=== PATIENT | male | born 1970 | race African-American/Black ===

== ENCOUNTER 2016-09-15 06:18 | Inpatient (IN) ==
[2016-09-15] MEDS ORDERED: D50W SYRINGE ONE (06:26)
[2016-09-15] MEDS ORDERED: DIPRIVAN 1% 1,000 MG/100 ML BOTTLE ONE (06:28)
[2016-09-15] MEDS ORDERED: NS 1,000 ML IV ONE (06:33)
[2016-09-15] MEDS ORDERED: ZOSYN 3.375 GM/NS 3.375 GM/50 ML IVPB IV ONE (06:33)
--- NOTE | 2016-09-15 06:44 | PROVIDER DOCUMENTATION ---
HPI-General Adult - General Chief Complaint: Low Blood Sugar Stated Complaint: GENERAL Time Seen by Provider: 09/15/16 06:32 Source: EMS Unable to obtain history due to:: altered - History of Present Illness -Gen Adult Nature of Presenting Problems: EMS called for unreasopnsive. BS was 22 on arrival. They gave 2 amps D50 with no response. Gave Narcan, only vomited. pupils remained constricted. On arrival , was making random writhing motions, eyes deviated to R. Was given vecuronium, intubated Onset/Duration: reports: unsure Timing: reports: still present Modifying Factors: improves with: nothing - Diabetes Related Context Context: reports: low blood sugar Review of Systems - Adult - REVIEW OF SYSTEMS - ADULT ROS:: unobtainable per condition Constitutional: reports: no symptoms reported Neurological: reports: other (unresponsive) Endocrine: reports: see HPI Past History - Adult - PAST MEDICAL HISTORY-ADULT Review of Records: reports: Medications Reviewed Cardiovascular: reports: HTN Genitourinary: reports: ESRD Endocrine/Immune: reports: Diabetes Diabetes Type: Type 1 Diabetes controlled by:: Insulin Dependent Physical Exam-General - PHYSICAL EXAM-ADULT Exam Limited by: pt unresponive to voice, touch. HAking margy writhing motions Initial Vital Signs Reviewed: Yes - CONSTITUTIONAL General Appearance: severe distress - EYES Eyes: pink conjunctivae, other (pupils @ 2 mm, unreactive) - HEAD, EARS, NOSE, MOUTH & THROAT HENMT: moist mucous membranes, normal ENT inspection, pharynx normal - NECK Neck: full range of motion - RESPIRATORY Respiratory: lungs clear, normal breath sounds, no accessory muscle use - CARDIOVASCULAR Cardiovascular: regular rate, rhythm, no edema, no murmur - GASTROINTESTINAL (ABDOMEN) Abdominal Exam: soft - MUSCULOSKELETAL Extremity: other (L BKA, R fist clenched, arms flex and extend) - SKIN Integumentary: normal color, normal turgor, warm/dry - NEUROLOGIC Neurologic: other (unresopnsive to voice, touch, facial grimacing, eyes deviated to R) - PSYCHIATRIC Psych/Mental Status: other (unresponsive) Progress - PLAN OF CARE/RESULTS Progress/Plan/Lab Results: Laboratory Results - last 24 hr 09/15/16 06:23 POC Glucose 78 Orders Category Date Time Status Cardiac Monitoring DIRECTED Care 09/15/16 06:33 Active IV Insertion ORDERED Care 09/15/16 06:33 Active IV Insertion ORDERED Care 09/15/16 06:33 Active Intake and Output-Strict ORDERED Care 09/15/16 06:33 Active Notify MD of + Sepsis Screen NOW Care 09/15/16 06:33 Active Notify MD/PA/HAILEE for exam NOW Care 09/15/16 06:33 Active Repeat Vital Signs .Blood Pressure Care 09/15/16 06:33 Active Repeat Vital Signs .Heart Rate Care 09/15/16 06:33 Active Repeat Vital Signs .Oxygen Saturation Care 09/15/16 06:33 Active Repeat Vital Signs .Respiratory Rate Care 09/15/16 06:33 Active Repeat Vital Signs .Temp Care 09/15/16 06:33 Active CHEST-1 VIEW [RAD] Stat Exams 09/15/16 06:36 Ordered HEAD W/O CONTRAST [CT] Stat Exams 09/15/16 06:36 Ordered ABG [RESP] Routine Lab 09/15/16 06:35 Ordered ALCOHOL BLOOD Stat Lab 09/15/16 06:36 Uncollected BLOOD CULTURE [BLDCUL] Stat Lab 09/15/16 06:33 Uncollected CBC WITH DIFF [HEME] Stat Lab 09/15/16 06:33 Uncollected CK PROFILE [SP CHEM] Stat Lab 09/15/16 06:33 Uncollected COMPREHENSIVE METABOLIC PANEL [CHEM] Stat Lab 09/15/16 06:33 Uncollected LACTATE, PLASMA [CHEM] Stat Lab 09/15/16 06:33 Uncollected LACTATE, PLASMA [CHEM] Timed Lab 09/15/16 06:33 Ordered MAGNESIUM [CHEM] Stat Lab 09/15/16 06:35 Uncollected PROTIME WITH INR [COAG] Stat Lab 09/15/16 06:33 Uncollected PTT [COAG] Stat Lab 09/15/16 06:33 Uncollected TROPONIN T Stat Lab 09/15/16 06:33 Uncollected TYPE & SCREEN [BBK] Stat Lab 09/15/16 06:35 Uncollected URINALYSIS W/POSS RFLX CULT [URINALYSIS] Stat Lab 09/15/16 06:36 Uncollected URINE DRUG SCREEN Stat Lab 09/15/16 06:36 Uncollected 0.9% Sodium Chloride Inj [Ns] 1,000 ml Med 09/15/16 06:33 Discontinued IV As Directed Dextrose 50% Syringe [D50w Syringe] Med 09/15/16 06:26 Discontinued 100 ml .ROUTE .STK-MED ONE Pharmacy Order [Vancomycin IV Per Pharmacy] Med 09/15/16 06:45 Ordered 1 each MISC DIRECTED Piperacil/Tazobact 3.375 gm/Ns [Zosyn 3.375 gm/Ns] 50 Med 09/15/16 06:33 Ordered ml IV NOW Propofol [Diprivan 1%] Med 09/15/16 06:28 Discontinued 1,000 mg in 100 ml .ROUTE As Directed Result Diagrams: 09/15/16 06:45 09/15/16 06:45 - EKG 1 Time of EKG reading by physician:: 07:30 EKG Read and Signed by:: Lionel Barth Rate: 83 Rhythm: ventric paced QRS: normal DC Interval: normal ST Wave: normal - XRAY 1 XRAY Study: Chest Impression: Abnormal XRAY Interpretation: ET tube in good position, no infiltrates - CONSULTS/PCP/HOSPITALIST Notification #1 *Consult/PCP/Hospitalist*: [place]und[place] Time Discussed: 08:15 Consult Disposition: Will see in ED, Admit Procedures - INTUBATION Time of Intubation: 06:30 Intubation Method: orotracheal Equipment: ETT, Bougie Tube Size (cm): 7.5 Pretreated with 100% Oxygen?: Yes Breath Sounds after Intubation: equal ETT Primary Tube Confirmation: Capnometry CO2 Change, Tube placement verified on XRAY Intubation Complications: oral-unsuccessful attempt (cords not visualized, so ET held unil bougie placed) Vent Settings: See Respiratory Therapy Notes Departure - Departure Date of Disposition Decision: 09/15/16 Time of Disposition Decision: 06:35 DIAGNOSIS: Hypoglycemia Altered mental status Qualifiers: Altered mental status type: coma Coma depth: Melanie coma 3-8 Coma timing: in the field (EMT or ambulance) Qualified Code(s): R40.2431 - Melanie coma scale score 3-8, in the field [EMT or ambulance] Chronic renal failure Qualifiers: Chronic kidney disease stage: stage 5 Qualified Code(s): N18.5 - Chronic kidney disease, stage 5 Disposition: ADMITTED INPATIENT 09 Certified Medical Emergency: Emergent Condition: Poor Referrals and Follow-Ups: None,PCP [Primary Care Provider] - - Critical Care Note This patient required my direct & personal management of CC.: Yes Total Time (mins): 35 Critical Care Statement: This patient required my direct personal management to treat or rule out processes, the absence of which, could potentiallly result in sudden, clinically significant life or limb threatening deterioration.
[2016-09-15] MEDS ORDERED: VANCOMYCIN IV PER PHARMACY MISC SCH ×2 (06:45→11:00)
[2016-09-15 07:05] LABS: MANUAL DIFF NEEDED? NO
[2016-09-15 07:16] LABS: BASO% 0.4 % (0.0-0.8); EOS# 0.05 X1000 (0.0-0.7); EOS% 0.9 % (0.0-10.0); HEMATOCRIT 38.5 % (42.0-52.0); HEMOGLOBIN 12.2 g/dL (14.0-18.0); LYMPH# 1.07 X1000 (1.2-3.4); LYMPH% 19.1 % (20.5-51.1); MCH 28.6 PG (27-31); MCHC 31.7 g/dL (33-37); MCV 90.2 FL (81-99); MONO# 0.27 X1000 (0.11-0.59); MONO% 4.8 % (1.7-9.3); MPV 12.3 FL (7.4-10.4); NEUT% 74.8 % (42.2-75.2); PLT 158 X1000 (130-400); RBC 4.27 XMIL (4.7-6.1)
[2016-09-15 07:23] LABS: INR 1.06; PROTIME 11.2 Seconds (9.2-11.7); PTT 27.2 Seconds (22.0-36.0)
--- NOTE | 2016-09-15 07:29 | Diag Imaging Result Doc PS360 ---
EXAM: HEAD W/O CONTRAST INDICATION: ALOC COMPARISON: None. FINDINGS: There is mild patchy low attenuation in the periventricular and subcortical white matter suggesting mild microangiopathy. There is no definite acute infarct given the limited sensitivity of CT versus MRI. There is no discrete intracranial mass, mass effect, or intracranial hemorrhage. There is minimal maxillary and sphenoid sinus mucosal disease. There are bilateral large mastoid air cell effusions. Surrounding soft tissues and bony structures are grossly unremarkable, otherwise. IMPRESSION: 1.Mild chronic changes but no evidence of acute intracranial pathology. 2.Bilateral large mastoid air cell effusions and minimal sinus mucosal disease. Electronically signed by Todd Damon 09/15/2016 7:26 AM
[2016-09-15] MEDS ORDERED: NORCURON IV ONE (07:30)
[2016-09-15] MEDS ORDERED: D50W SYRINGE IV ONE ×2 (07:30→15:49)
[2016-09-15 07:37] LABS: ALLEN TEST NO; BE 12.2 mmoll (-3.0-3.0); BLOOD TYPE ARTERIAL; DRAW SITE R FEMORAL; O2(CT) 17.6 mL/dL (15.0-23.0); PO2(98.6) 228 mmHg (60-100); SAMPLE BLOOD; SAO2 95.6 % (95.0-100.0); SRATE 14 BPM; THB 12.7 g/dL (11.5-17.4); TVOL 500 mL; pH(98.6) 7.47 (7.35-7.45)
[2016-09-15 07:38] LABS: MODALITY VENTILATOR
[2016-09-15 07:39] LABS: PCO2(98.6) 52 mmHg (35-45)
[2016-09-15 07:50] LABS: ALBUMIN 4.2 g/dL (3.5-5.0); CALCIUM 9.3 mg/dL (8.8-10.2); POTASSIUM 5.4 mmol/L (3.5-5.1); TOTAL BILIRUBIN 0.37 mg/dL (0.20-1.00); TOTAL PROTEIN 7.7 g/dL (6.3-8.3)
[2016-09-15] MEDS: DIPRIVAN 1% 1,000 MG/100 ML BOTTLE IV SCH ×5 (08:20→22:13)
[2016-09-15 08:55] LABS: URINE CULTURE NEEDED? NO; URINE MICRO REVIEW NEEDED? NO; URINE SOURCE CATH
[2016-09-15 09:07] LABS: BILIRUBIN URINE NEGATIVE (NEGATIVE); BLOOD URINE TRACE (NEGATIVE); COLOR YELLOW; GLUCOSE URINE 300 mg/dL (NEGATIVE); LEUKOCYTES URINE NEGATIVE (NEGATIVE); NITRITE URINE NEGATIVE (NEGATIVE); PH URINE 8.5; PROTEIN URINE 600 mg/dL (NEGATIVE); SP GRAVITY URINE 1.012; TURBIDITY URINE CLEAR (CLEAR); UROBILINOGEN URINE NORMAL (NORMAL)
[2016-09-15 09:09] LABS: UR EPITHELIAL CELLS <10 /HPF (<10); URINE BACTERIA NEGATIVE /HPF; URINE RBC <10 /HPF (<10); URINE WBC <10 /HPF (<10)
[2016-09-15 09:15] LABS: UR AMPHETAMINES QUAL NONE DETECTED (NONE DETECT); UR BARBITUATES QUAL NONE DETECTED (NONE DETECT); UR BENZODIAZEPIN QUAL NONE DETECTED (NONE DETECT); UR CANNABINOIDS QUAL NONE DETECTED (NONE DETECT); UR COCAINE QUAL NONE DETECTED (NONE DETECT); UR METHADONE QUAL NONE DETECTED (NONE DETECT); UR OPIATES QUAL NONE DETECTED (NONE DETECT); UR OXYCODONE QUAL NONE DETECTED (NONE DETECT); UR PCP QUAL NONE DETECTED (NONE DETECT)
[2016-09-15] MEDS ORDERED: NS 1,000 ML IV SCH (09:36)
[2016-09-15] MEDS: PROTONIX IV SCH (10:28)
[2016-09-15] MEDS: SODIUM CHLORIDE 0.9% INJ SCH (10:28)
[2016-09-15] MEDS: HEPARIN SUBQ SCH ×2 (10:28→22:13)
[2016-09-15] MEDS ORDERED: D5 1/2 NS 1,000 ML IV SCH (10:58)
[2016-09-15] MEDS ORDERED: ZOSYN 2.25 GM/NS 2.25 GM/50 ML IVPB IV SCH (11:00)
[2016-09-15] MEDS ORDERED: LEVOPHED 8 MG in D5 1/2 NS 250 ML IV SCH (11:00)
[2016-09-15] MEDS ORDERED: HUMALOG SUBQ SCH (11:00)
[2016-09-15] MEDS ORDERED: VANCOMYCIN 1 GM/NS 1 GM/250 ML IVPB IV ONE (11:01)
[2016-09-15] MEDS: NEO-SYNEPHRINE 50 MG in NS 250 ML IV SCH (11:04)
[2016-09-15] MEDS: DUONEB (A & A) INH SCH ×4 (11:33→23:29)
--- NOTE | 2016-09-15 12:20 | Diag Imaging Result Doc PS360 ---
EXAM: CHEST-1 VIEW INDICATION: intubated TECHNIQUE: One view COMPARISON: None. FINDINGS: The newly placed ET tube projects over the trachea and above the castillo at about the T4 level. There is an NG tube in place that projects below the diaphragm and out of the [id number], assumed to be in the stomach. The lungs are grossly clear. There is no discrete pleural fluid collection or pneumothorax. The cardiac silhouette is unremarkable. The central vasculature may be slightly prominent. This could be due to vascular crowding from poor inspiration. IMPRESSION: Recent placement of ET tube and NG tube as described and slight prominence of the central vasculature. Electronically signed by Todd Damon 09/15/2016 12:17 PM
--- NOTE | 2016-09-15 12:44 | ECHO REPORT ---
ORDER DATE: 09/15/2016 ECHOCARDIOGRAM: MEASUREMENTS: Left ventricular end-diastolic diameter 3.4, end systolic diameter 2.3, septal thickness 2.3, posterior wall thickness 1.6, left atrium 3.8, aortic root 3.3. SUMMARY: 1. Adequate quality study. 2. Trileaflet aortic valve demonstrates mild sclerosis but opens normally on 2-dimensional images. Peak gradient across aortic valve is less than 10 mmHg. Mild to moderate mitral annular calcification is demonstrated with trace mitral regurgitation. Tricuspid valve is without structural abnormality with trace tricuspid regurgitation. Pulmonic valve without structural abnormality with mild pulmonic insufficiency. Estimated systolic PA pressure by Doppler is 25-30 mmHg. The aortic root is normal in size. 3. Normal left ventricular chamber size with severe concentric left hypertrophy is demonstrated. Estimated left ventricular ejection fraction appears to be at least 60%. No regional wall motion dysfunction is evident. Doppler suggests grade 1 left ventricular diastolic dysfunction. Left atrium, right atrium, and right ventricle are normal size with normal right ventricular systolic function. 4. No pericardial effusion. 5. Inferior vena cava is dilated but is a nonspecific finding, patient on ventilator at time of study. 6. Sinus rhythm during study. CONCLUSIONS: 1. Very mild aortic valve sclerosis without stenosis. 2. Mild to moderate mitral annular calcification with trace mitral regurgitation. 3. Severe concentric left hypertrophy with estimated left ventricular ejection fraction at least 60%. 4. Grade 1 left ventricular diastolic dysfunction suggested. cc: MD Issac Nazario CRNP
--- NOTE | 2016-09-15 13:21 | HISTORY AND PHYSICAL ---
CHIEF COMPLAINT: Altered mental status and respiratory failure. HISTORY OF PRESENT ILLNESS: Mr. Vasquez is a 46-year-old male with a history that is largely unknown, he has end-stage renal disease, on hemodialysis, who was found obtunded by his family this morning. Currently patient is intubated and sedated in the ICU thus history is unable to be obtained from the patient, we did speak with his mother who does not have a very good understanding of his medical history. Apparently yesterday he was in his normal state of health and before going to bed checked his blood sugar, it was found to be 74, he was given orange juice and peanut butter and went to bed. This morning at around 5 o'clock he was found obtunded with white foamy substance in his mouth and ambulance was called. Per report his blood sugar was 22 in the ambulance and he was brought to the ER here where he was promptly intubated for airway protection and hypoxemia with a pulse ox of 75%. A head CT was done in the ER, it did not show anything acute, his labs revealed a creatinine of 10.4 and a troponin of 0.316, with a normal CK otherwise. His labs are fairly unremarkable. His chest x-ray did not show anything acute and EKG is within normal limits. He is now going to be admitted to the ICU for critical care management. PAST MEDICAL HISTORY: 1. ESRD on hemodialysis. 2. History of CVA. 3. Gangrenous right pointer finger. 4. Hypertension. 5. Hyperlipidemia. 6. CAD. 7. Vasculopathy. SURGICAL HISTORY: He has had a left lower extremity amputation, [id number] , and bilateral AV fistulas. SOCIAL HISTORY: No history of tobacco or alcohol use. He is reported to have smoked marijuana occasionally for appetite stimulation. He is . His is not here now but he has strong family support. REVIEW OF SYSTEMS: Unable to be obtained. FAMILY HISTORY: Noncontributory. ALLERGIES: No known drug allergies. HOME MEDICATIONS: Norvasc 10 mg daily, Lipitor 10 mg p.o. at bedtime, carvedilol 12.5 mg daily, [place] 5 as needed for pain, Levemir 6 units b.i.d., lisinopril 40 mg p.o. daily. PHYSICAL EXAMINATION: VITAL SIGNS: Blood pressure. 141/106, heart rate is 80, respiratory rate 18, O2 saturation 97% on 50% mechanical ventilation. GENERAL: This is a chronically ill-appearing 46-year-old male , lying in hospital bed intubated and sedated. NEUROLOGIC: The patient is intubated on propofol drip. HEENT: Head is atraumatic and normocephalic. His pupils are equal, round, reactive to light. His oral mucosa is moist. Trachea is midline. Poor dentition. NECK: Supple. Trachea is midline. CHEST: Clear to auscultation bilaterally. Diminished at the bases. CV: Regular rate and rhythm. S1, S2 is noted. GI: Soft, nondistended. Bowel sounds are hypoactive. EXTREMITIES: Left lower extremity amputation noted. Right lower extremity without edema, cool to touch, he does have ulceration of the skin in the midportion of his right constantino, it does not appear to be infected. He has a right finger ulceration with necrotic tip currently wrapped in gauze, clean, dry and intact. DIAGNOSTIC DATA: WBC 5.59, hemoglobin 12.4, hematocrit 38.5, platelet count is 158,000, INR 1.06. ABG on 100% mechanical ventilation; pH 7.47, CO2 52, O2 228, bicarb 34.4, sodium 144, potassium 5.4, chloride 89, CO2 31, anion gap 24, BUN 60, creatinine 10.4, glucose 202, magnesium is 3, calcium 9.3, bilirubin 0.37, AST 22, ALT 23, alkaline phosphatase 95. Troponin 0.316, CK 161. Lactate 2. TSH 3.3. UA does not show anything acute. Toxicology is negative. Head CT shows chronic changes, nothing acute. Chest x-ray does not show any acute abnormalities. ASSESSMENT AND PLAN: 1. Acute hypoxemic respiratory failure: Etiology is unclear at this time but it would seem that prolonged hypoglycemia is the underlying cause. He has been intubated and is sedated on propofol in the ICU. We have consulted Pulmonary Critical Care. Will continue with aggressive pulmonary toilet, DuoNebs, and broad-spectrum antibiotics. We have ordered daily chest x-ray, ABGs, labs, and deep venous thrombosis and gastrointestinal prophylaxis. 2. Possible aspiration pneumonia/pneumonitis. Will start the patient on broad spectrum antibiotics. 3. Profound hypoglycemia: We are going to switch the patient over to a D5 1/2 NS drip and check blood sugars every hour. 4. Elevated troponin: We are going to continue to trend those and order an echocardiogram and see if we can find records as the patient was at [facility] last month. 5. End-stage renal disease: Dr. Dupree has been consulted for dialysis management as well as assistance with medical care. His hemoglobin and hematocrit, acid base balance and fluid volume status are all stable at this time. 6. Diabetes mellitus. We are going to check a hemoglobin A1c and put him on D10. We will give him sliding scale insulin for any hyperglycemia. 7. Anemia: Likely chronic disease related. We will check iron studies and treat accordingly. 8. Right index finger necrosis. Will consult general surgery for further recommendations. 9. Hyperkalemia. Will trend the potassium and treat accordingly. Further management as per the station cleaning porter. 10. Deep venous thrombosis and gastrointestinal prophylaxis provided with heparin and Protonix respectively. CRITICAL CARE TIME WITH THE PATIENT: Greater than 45 minutes. Dictated by HAILEE Jose for Carol Morales MD cc: HAILEE Jose MD The patient was seen and examined by me. I agree with the assessment and plan as dictated. [facility] CENTERYol[facility]
--- NOTE | 2016-09-15 14:23 | OPERATIVE NOTE ---
PROCEDURE DATE: 09/15/2016 PROCEDURE: Left femoral TLC. INDICATIONS: Emergency access and respiratory failure. PROCEDURE: Patient's left groin was shaved, prepped with ChloraPrep, and anesthetized with lidocaine. Then the 14 gauge introducer needle was used to puncture the left femoral vein. A guide ajit was inserted over which a dilator was passed and 20 cm triple lumen catheter was inserted 20 cm and sutured in position with two 2-0 silk sutures. Good blood flow all ports.
--- NOTE | 2016-09-15 14:35 | CONSULTATION ---
DATE OF CONSULTATION: 09/15/2016 REQUESTING PHYSICIAN: Dr. Carol Morales. Thank you very much for asking me to see this very unfortunate, 46-year-old male, . I am pleased to assist in his care. DIAGNOSES: 1. Acute mental status change associated with hypoglycemia, likely to be a hypoglycemic encephalopathy, rule out sepsis or cerebrovascular accident. 2. Respiratory failure as a consequence to above. 3. Chronic renal insufficiency. 4. Extreme peripheral vascular disease. RECOMMENDATIONS: He is placed on mechanical ventilation. I will adjust this. I will place a left femoral TLC for emergency access and resuscitation, realizing this will have to be changed in a couple of days, but will try to buy some time for volume resuscitation and glucose resuscitation to see if there is any mental status return. Will oxygenate and try to see if his mental status will improve. We will follow closely along with you. HISTORY: This very unfortunate, 46-year-old male, , is a chronic renal dialysis patient who subsequently presents to our facility after being found obtunded in bed. He was intubated by the ambulance, placed on mechanical ventilation, and found to have a blood glucose of 23. I am consulted to assist in his care. He has no ability to give any further history. PAST MEDICAL HISTORY: Positive for chronic renal disease, on hemodialysis, as well as hypertension, as well as peripheral vascular disease. SOCIAL HISTORY: He has a supportive family. He is not a current smoker or drinker. FAMILY HISTORY: Noncontributory. REVIEW OF SYSTEMS: Cannot be obtained secondary to above. The ABG shows a 7.46 pH with an 88 CO2 and 18 respirations, temp 97.5 degrees.HEENT: Reveals pupils that are equal and reactive. Extraocular muscles are intact. Chest: Reveals bilateral mechanically generated breath sounds with no wheezes. Cardiac Exam: Reveals a regular rhythm. Abdomen: Soft, nontender. Extremities: Reveal a left olxfz-[id number]-lyuh amputation. There is no edema. There is vascular grafts on both upper extremities. Neurological: He makes no purposeful movement but does move his hands. LABORATORY: His sodium is 144, potassium 5.4, chloride 89, CO2 31, BUN 60, creatinine 10.4, glucose 91 now, initially 23. ABG shows a 7.47 pH with a 53 CO2 and 228 O2 on 100%, rate of 14 PRVC and 5 of PEEP. The white count is 5,500, hemoglobin 12.2, hematocrit 38.5, and platelets 158,000.
[2016-09-15 15:43] LABS: ALBUMIN 3.8 g/dL (3.5-5.0); CALCIUM 8.6 mg/dL (8.8-10.2)
[2016-09-15 15:46] LABS: POTASSIUM 6.1 mmol/L (3.5-5.1)
[2016-09-15] MEDS ORDERED: SODIUM BICARBONATE 8.4% IV PUSH ONE (15:49)
[2016-09-15] MEDS ORDERED: ALBUTEROL 0.5% INH CONC FOR HYPERKALEMIA INH ONE (15:50)
[2016-09-15] MEDS ORDERED: VELTASSA PO ONE (15:53)
[2016-09-15] MEDS: ZOSYN 2.25 GM/NS 2.25 GM/50 ML IVPB IV SCH (16:16)
[2016-09-15] MEDS ORDERED: ALBUTEROL NEB INH ONE (20:00)
--- NOTE | 2016-09-15 21:46 | CONSULTATION ---
DATE OF CONSULTATION: 09/15/2016 REASON FOR CONSULTATION: Assistance with management and end-stage kidney disease. HISTORY OF PRESENT ILLNESS: Mr. Vasquez is a 46-year-old black man with a history of end-stage kidney disease secondary to diabetes. He also has hypertension, cerebrovascular disease, coronary disease, peripheral vascular disease. He dialyzes Friday, Friday, Friday in [place]. He was brought to the emergency room because he was found obtunded at home and was profoundly hypoglycemic. Blood sugar was 22. He was brought to the emergency room and was promptly intubated for airway protection and hypoxemia. CT of the head showed no acute changes and he had no other acute findings. He did develop hypotension after beginning Diprivan. He did attend his routine dialysis on last Friday. The family is not present in the room or in the waiting room to provide any further history so the history is obtained entirely from the chart. PAST MEDICAL HISTORY: As above. HOME MEDICATIONS: Include lisinopril, amlodipine, hydrocodone, atorvastatin, insulin, carvedilol. ALLERGIES: None. SOCIAL HISTORY: No alcohol or tobacco. Does use occasional marijuana. He is . FAMILY HISTORY: Noncontributory. REVIEW OF SYSTEMS: Otherwise noncontributory. PHYSICAL EXAM: General: Middle-aged man, sedated on the ventilator. No distress. Skin: Warm and dry. HEENT: Conjunctivae are pink. Pupils are equal. Oropharynx is clear and moist. Neck: Supple. Trachea is midline. Neck veins are not visible. Heart: Regular with a gallop. No rubs. Lungs: Have equal breath sounds. No crackles or wheezes. No accessory muscle use or retractions. Abdomen: Soft, nontender. Bowel sounds are present. No organomegaly, masses or bruits. Extremities: Have no edema, clubbing, or cyanosis. Neurologic Exam: Impaired by Diprivan but nonfocal. LABORATORY DATA: Sodium 143, potassium 6.1, chloride 91, bicarbonate 28, BUN 59, creatinine 10.5. Hemoglobin 12.2. IMPRESSION: 1. End-stage kidney disease. He has no acute indications for dialysis today. We will plan his 1st treatment tomorrow. 2. Electrolytes: Modest hyperkalemia is present. This has been treated medically and will remeasure at 8 p.m. 3. Acid base. Anion gap is 24. Lactate was 1.3 on is blood gas. We will check acetone. Most likely related to his renal disease only. 4. Anemia is in target. 5. Hypotension. Improving and his Clay-Synephrine is being weaned off. cc: Mukesh Dupree MD
[2016-09-16] MEDS: DIPRIVAN 1% 1,000 MG/100 ML BOTTLE IV SCH ×7 (01:05→23:19)
[2016-09-16] MEDS: ZOSYN 2.25 GM/NS 2.25 GM/50 ML IVPB IV SCH ×4 (01:05→23:19)
[2016-09-16] MEDS: DUONEB (A & A) INH SCH ×2 (03:32→07:43)
[2016-09-16] MEDS ORDERED: NORCURON ONE (04:21)
[2016-09-16 04:51] LABS: ALLEN TEST YES; BE 0.7 mmoll (-3.0-3.0); BLOOD TYPE ARTERIAL; DRAW SITE R RADIAL; METHB 0.2 % (0.0-1.5); O2(CT) 24.9 mL/dL (15.0-23.0); PCO2(98.6) 40 mmHg (35-45); PO2(98.6) 168 mmHg (60-100); SAMPLE BLOOD; SAO2 95.9 % (95.0-100.0); SRATE 18 BPM; THB 18.3 g/dL (11.5-17.4); TVOL 500 mL; pH(98.6) 7.41 (7.35-7.45)
[2016-09-16 04:53] LABS: MODALITY VENTILATOR
[2016-09-16 05:16] LABS: HEMOGLOBIN A1C 6.8 % (4.8-6.0)
--- NOTE | 2016-09-16 05:29 | EKG Report ---
Test Performed on : 09/15/2016 1:34:43 PM Test Reason : tachycardia Blood Pressure : / mmHG Vent. Rate : 096 BPM Atrial Rate : 096 BPM P-R Int : 138 ms QRS Dur : 084 ms QT Int : 368 ms P-R-T Axes : 079 054 250 degrees QTc Int : 464 ms Normal sinus rhythm. Left ventricular hypertrophy with repolarization abnormality Abnormal ECG When compared with ECG of 15-SEP-2016 07:27, (Unconfirmed) Sinus rhythm. has replaced Electronic ventricular pacemaker Confirmed by Thomas ANGELO, Alok Massey ([id number]) on 09/16/2016 7:57:47 AM
[2016-09-16] MEDS ORDERED: NS 1,000 ML IV ONE (05:57)
[2016-09-16 06:10] LABS: FERRITIN 943 ng/mL (30-400)
--- NOTE | 2016-09-16 06:57 | EKG Report ---
Test Performed on : 09/15/2016 07:27:56 AM Test Reason : NO ORDER IN [place] Blood Pressure : / mmHG Vent. Rate : 083 BPM Atrial Rate : 083 BPM P-R Int : 152 ms QRS Dur : 100 ms QT Int : 414 ms P-R-T Axes : 079 044 266 degrees QTc Int : 486 ms Atrial-sensed ventricular-paced rhythm Abnormal ECG No previous ECGs available Unconfirmed Result
--- NOTE | 2016-09-16 07:14 | Diag Imaging Result Doc PS360 ---
CHEST-PORTABLE - 09/16/2016 INDICATION: dyspnea TECHNIQUE: COMPARISON: 09/15/2016 FINDINGS: Support tubes are stable. There is worsening infiltrate in the left lung base. Heart size remains normal. No pneumothorax or significant effusion. IMPRESSION: Worsening left basilar infiltrate. Electronically signed by Addy Glass 09/16/2016 7:12 AM
[2016-09-16] MEDS ORDERED: TIGHT: 0.2 ML/HR MISC PRN ×2 (07:18→08:08)
[2016-09-16] MEDS ORDERED: NS 2,000 ML MISC PRN ×2 (07:18→08:08)
[2016-09-16] MEDS ORDERED: HEPARIN IV PRN ×2 (07:18→08:08)
[2016-09-16] MEDS: NEO-SYNEPHRINE 50 MG in NS 250 ML IV SCH ×2 (07:29→16:52)
[2016-09-16 08:12] LABS: HEMATOCRIT 32.6 % (42.0-52.0); HEMOGLOBIN 10.3 g/dL (14.0-18.0); MCHC 31.6 g/dL (33-37); MCV 91.8 FL (81-99); MPV 12.9 FL (7.4-10.4); RBC 3.55 XMIL (4.7-6.1)
[2016-09-16 09:08] LABS: ALBUMIN 3.5 g/dL (3.5-5.0); CALCIUM 8.3 mg/dL (8.8-10.2)
[2016-09-16 09:09] LABS: POTASSIUM 6.2 mmol/L (3.5-5.1)
[2016-09-16] MEDS: HEPARIN SUBQ SCH ×2 (09:47→21:04)
[2016-09-16] MEDS: SODIUM CHLORIDE 0.9% INJ SCH (09:47)
[2016-09-16] MEDS: PROTONIX IV SCH (09:47)
--- NOTE | 2016-09-16 10:15 | PROGRESS NOTE ---
DATE: 09/16/2016 SUBJECTIVE: Patient currently sedated, mechanically ventilated. OBJECTIVE: Vital Signs: Temperature 98.6 degrees, pulse 94, respiratory rate 18, blood pressure 86/57. Intake 2.4 L. Output 395 mL and 280 mL of this was NG-tube drainage. General: This is a middle-aged gentleman currently sedated. He is intubated and mechanically ventilated. HEENT: Normocephalic and atraumatic. He is orally intubated. Neck: Supple. Trachea midline. Unable to discern JVD. Cardiovascular: He is tachycardic, has a gallop. Pulmonary: He has equal excursion. He has wheezes bilaterally. Abdomen: Soft, with positive bowel sounds. : Not inspected. He has a Pitts catheter. Extremities: He has a left lower extremity BKA. Right lower extremity with some wounds noted to the pretibial area and a dressing noted to the right knee. There is no edema noted. Integumentary: Skin is warm and dry otherwise. Lab Data: WBC of 10.9, hemoglobin 10.3, hematocrit 32.6, and platelet count of 153,000. Sodium 138, potassium 6.2, CO2 25, BUN 66, creatinine 11.4, calcium 8.3, phosphorus 9.6. ASSESSMENT AND PLAN: 1. End-stage renal disease management. Today is his routine dialysis day. We will dialyze him on a 2 K bath/UF to dry weight or as tolerated by his blood pressure for a routine 4 hour treatment. We will cannulate his left arm fistula today. We will attempt to reach family to determine who his primary architectural project manager is. 2. Electrolytes. Continues with hyperkalemia. We will correct with dialysis today. 3. Acid base balance. We will dialyze on a routine dialysis bath. 4. Hypotension, marginal. Continues to require Clay-Synephrine. Seen, data reviewed, discussed with Steven Palomo on 09/16/16. I agree with the above assessment and plan of care. rg Dictated by HAILEE Storey for Mukesh Dupree MD cc: Mukesh Dupree MD [facility]
[2016-09-16] MEDS ORDERED: HEPARIN ONE (10:33)
[2016-09-16] MEDS ORDERED: NS 2,000 ML ONE (10:33)
[2016-09-16] MEDS: HUMULIN R SUBQ SCH ×3 (11:20→21:05)
--- NOTE | 2016-09-16 13:55 | PROGRESS NOTE ---
DATE: 09/16/2016 SUBJECTIVE: The patient remains intubated and sedated on the ventilator. No acute events noted overnight. OBJECTIVE: Vital Signs: Temperature 98.3 degrees, blood pressure 90/66, heart rate 105, respirations 18, O2 saturations 100% on the mechanical ventilator. General: This is a chronically ill-appearing, elderly male, lying in bed, sedated and intubated. Head: Normocephalic, atraumatic. Heart: S1, S2. Normal. Tachycardic. Lungs: Coarse breath sounds bilaterally. No crackles. No wheezing. Abdomen: Positive bowel sounds. Soft , nontender, nondistended. Extremities: The patient has fistulas in both upper extremities. The patient does have a left phwky-rnv-txan amputation stump. The right index finger has dry gangrene. Neurologic: The patient is currently sedated on the ventilator. LABORATORY: White blood cell count 10, hemoglobin 10, hematocrit 32, platelets 153,000. Sodium 138, potassium 6.2, chloride 85, CO2 25, BUN 66, creatinine 11.4, glucose 269, folate 5.6, phosphorus 9.6. ASSESSMENT AND PLAN: 1. Acute respiratory failure. Continue with IV antibiotic therapy, bronchodilator and ventilator management as per the barrel marker. 2. Suspected aspiration pneumonia. Continue on the current antibiotic regimen. 3. Hypoglycemia. Improved. We will start the patient on sliding scale insulin and monitor the blood sugars closely. 4. Hyperkalemia. This will be addressed during dialysis today. 5. End-stage renal disease. Management as per the internet sales consultant. 6. 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 Continue with wound care. General Surgery is following. 7. Peripheral vascular disease. Aware. 8. Folate deficiency. We will start the patient on folic acid replacement. 9. Anemia of chronic disease. We will monitor the patient's hemoglobin and hematocrit closely. 10. Diabetes mellitus type 2. The patient has been started on sliding scale insulin. 11. Deep vein thrombosis prophylaxis. Continue on heparin 5000 units subcutaneous every 12 hours. cc: Carol Morales MD MTDD
--- NOTE | 2016-09-16 14:45 | CONSULTATION ---
DATE OF CONSULTATION: 09/16/2016 REQUESTING PHYSICIAN: Carol Morales MD. REASON FOR CONSULTATION: Consult concerning right index finger dry gangrene. HISTORY OF PRESENT ILLNESS: A 46-year-old male who was found initially to be altered mental status, respiratory failure that was intubated yesterday, was noted to have dry gangrene of his right index finger. Unable to give further information as to the duration of these symptoms or the ischemia, but he had a wound noted there on admission. He has had 2 AV fistulous placed, one on either extremity. Both seem to have flow noted to them. Unsure of the details of why he has two upper extremity fistulas. There is no family at the bedside to give further information. We do not have the medical records from the outlying facility where he had these placed. The patient was intubated emergently and placed on sedation and I was asked to evaluated him for an opinion. Again, there are no family members available to give further information. I have reviewed all his medical from the other H and Ps that have been dictated. PAST MEDICAL HISTORY: 1. End-stage renal disease requiring hemodialysis. 2. History of stroke. 3. History of gangrene of the right index finger. 4. Hypertension. 5. Hyperlipidemia. 6. Coronary artery disease. 7. Peripheral vascular disease. PAST SURGICAL HISTORY: 1. Previous right digit amputation. 2. Oihwq-dxn-ptvh amputation. 3. Bilateral AV fistulas. SOCIAL: Unknown. Reviewed from other charts. FAMILY HISTORY: Unknown. ALLERGIES: None reported. HOME MEDICATIONS: Reviewed. REVIEW OF SYSTEMS: Unable to obtain. PHYSICAL EXAMINATION: Vital Signs: Patient is currently intubated and sedated. He is currently afebrile. His heart rate is in the low 100s. His blood pressure is 90/66, on 50% FiO2, with saturation in the 100s. General: Sedated on the ventilator. No acute distress. HEENT: Normocephalic, atraumatic. Pupils equal, round, react to light. Mucous membranes moist. Oropharynx benign. Neck: Supple. Trachea midline. Cardiovascular: Regular rate and rhythm. Lungs: Grossly clear, but referred airway noises. Abdomen: Soft, nondistended. Extremities: Dry gangrene noted to the right distal index finger. I do appreciate a triphasic radial pulse and signal. There is a monophasic ulnar signal. I cannot find a palmar arch. He has 2 fistulas, 1 on either extremity that seem to have flow in them. Vascular: Please see above. Skin: Please see above. LABORATORY: White blood cell count 10, hematocrit 32, platelet count 153,000. Remainder of labs reviewed. ASSESSMENT/PLAN: A 46-year-old male with dry gangrene of his right upper extremity with multiple medical problems. 1. Multiple medical problems. At this time, patient is being managed by the hospitalist service. We will keep a close eye on him. We would like to have his medical issues resolved before any kind of surgical intervention. 2. 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 At this time, patient likely would benefit from amputation. 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 Regardless, this needs to be amputated, but I suspect he needs to be cleared up medically before we can do this. I will continue to follow with you. cc: Solitario Tang MD
[2016-09-16] MEDS: FOLIC ACID 1 MG in NS 50 ML IV SCH (16:15)
[2016-09-16] MEDS: VANCOMYCIN 1 GM/NS 1 GM/250 ML IVPB IV SCH (17:27)
[2016-09-17] MEDS: NEO-SYNEPHRINE 50 MG in NS 250 ML IV SCH (03:24)
[2016-09-17 04:49] LABS: HEMATOCRIT 31.3 % (42.0-52.0); HEMOGLOBIN 9.7 g/dL (14.0-18.0); MCV 93.7 FL (81-99); MPV 11.8 FL (7.4-10.4); RBC 3.34 XMIL (4.7-6.1)
[2016-09-17 04:54] LABS: ALLEN TEST YES; BLOOD TYPE ARTERIAL; DRAW SITE L BRACHIAL; PCO2(98.6) 43 mmHg (35-45); PO2(98.6) 113 mmHg (60-100); SAMPLE BLOOD; SRATE 14 BPM; THB < 3.0 g/dL (11.5-17.4); TVOL 500 mL; pH(98.6) 7.38 (7.35-7.45)
[2016-09-17 04:55] LABS: MODALITY VENTILATOR
[2016-09-17 05:36] LABS: ALBUMIN 3.4 g/dL (3.5-5.0); CALCIUM 8.1 mg/dL (8.8-10.2); POTASSIUM 5.5 mmol/L (3.5-5.1)
[2016-09-17] MEDS: HUMULIN R SUBQ SCH ×4 (07:11→20:56)
--- NOTE | 2016-09-17 07:17 | Diag Imaging Result Doc PS360 ---
EXAM: CHEST-PORTABLE INDICATION: dyspnea TECHNIQUE: One view COMPARISON: 09/16/2016 FINDINGS: ET tube and NG tube are in stable positions. The patient is rotated toward the right slightly. Infiltrate in the left lower lung zone appears to have improved slightly during the interval. There are no new consolidations. Cardiac silhouette is stable. IMPRESSION: Slight interval improvement. Electronically signed by Todd Damon 09/17/2016 7:14 AM
[2016-09-17] MEDS: DUONEB (A & A) INH PRN ×3 (07:36→15:16)
[2016-09-17] MEDS: ZOSYN 2.25 GM/NS 2.25 GM/50 ML IVPB IV SCH ×2 (07:53→15:49)
[2016-09-17] MEDS: DIPRIVAN 1% 1,000 MG/100 ML BOTTLE IV SCH ×3 (08:12→18:21)
--- NOTE | 2016-09-17 08:30 | PROGRESS NOTE ---
DATE: 09/17/2016 SUBJECTIVE: No major changes. The patient is still on a ventilator. Still remains on Clay- Synephrine. OBJECTIVE: Vital Signs: Patient is currently afebrile. Most recent pulse 72, blood pressure 165/60. He is on Clay-Synephrine. General exam: Sedated on the ventilator. HEENT: Normocephalic, atraumatic. Pupils equal, round, react to light. Mucous membranes moist. Oropharynx benign. Neck: Supple. Trachea midline. Cardiovascular: Regular rate and rhythm. Lungs: Referred airway noises. Abdomen: Soft, nontender, nondistended. Extremities: Stable necrosis noted to the distal aspect of the right distal index finger. Vascular exam: Essentially unchanged. LABS: White blood cell count is 11, hematocrit 31. Remainder of labs reviewed. ASSESSMENT/PLAN: A 46-year-old, male with dry gangrene of his right upper extremity. 1. Multiple medical problems, at this time being managed by the hospitalist service. We will need to have these resolved before we can deal with them surgically. 2. 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 At this time, appears to be stable. He will likely need an amputation. Will continue to follow with you with local wound care. cc: Solitario Tang MD
[2016-09-17] MEDS: SODIUM CHLORIDE 0.9% INJ SCH (09:36)
[2016-09-17] MEDS: PROTONIX IV SCH (09:36)
[2016-09-17] MEDS: HEPARIN SUBQ SCH ×2 (09:36→21:06)
--- NOTE | 2016-09-17 10:14 | PROGRESS NOTE ---
DATE: 09/17/2016 SUBJECTIVE: This is a 46-year-old, who was admitted on 09/15/2016 history largely unknown. He had end-stage renal disease on hemodialysis. He was found obtunded by his family, apparently lives with mother. The patient came in and his sugar was apparently in the 20s. He was intubated and sedated and sent to the ICU. Concerned about infection and sepsis with an elevation of lactate acid level. PAST MEDICAL HISTORY/SUMMARY: 1. End-stage renal disease on hemodialysis. 2. History of CVA. 3. Gangrenous right pointer finger. 4. Hypertension. 5. Hyperlipidemia. 6. Coronary artery disease. 7. Vasculopathy. SURGICAL HISTORY: Left lower extremity amputation, zenhz-xvj-xcdl amputation and bilateral AV fistulas. Patient sedated on the ventilator. Chest x-ray from this morning with slight interval improvement. ET tube and NG tube are in stable position. Patient is rotated to the right slightly. Infiltrate in the left lower lung appears to be improved. OBJECTIVE: Vital Signs: Temp 98.3 degrees, pulse 72, respirations 14, blood pressure 157/85. HEENT: The pupils are equal, round. CVP less than 6 cm. Lungs: Clear in all lung mar[place]illa. Cardiovascular: Regular rhythm and rate without murmur or S3. Abdomen: Soft. Skin: Warm and dry. : Urine output over 2 L. LABS: White count 11,020, hematocrit 31, platelet count 134,000. Sodium 140, potassium 5.0, chloride 97, BUN 35, creatinine 7.4 which has come down from 11.4, blood sugars 217, 112, 76 and 94. ASSESSMENT AND PLAN: 1. Acute respiratory failure. Continue intravenous antibiotic therapy and bronchodilator ventilator management. 2. Suspect aspiration pneumonia. Continue present antibiotics. 3. Hypoglycemia, which is improved. Continue sliding scale. Pattern sugars. 4. Hyperkalemia, which is addressed with dialysis yesterday. 5. End-stage renal disease. 6. Dry gangrene to the right index finger. Dr. Tang is following. No surgery planned at this time. 7. Peripheral vascular disease, aware. 8. Folate deficiency. Start the patient on folic acid replacement. 9. Anemia of chronic disease. Monitor patient's hemoglobin and hematocrit closely. 10. Diabetes mellitus type 2. Continue to follow sugars. Review of orders: I am not sure I see anything to change at this point. He is on piperacillin and vancomycin. cc: Brandon Pro MD
[2016-09-17 10:36] LABS: ALLEN TEST YES; BE -3.3 mmoll (-3.0-3.0); BLOOD TYPE ARTERIAL; DRAW SITE L RADIAL; METHB 0.2 % (0.0-1.5); O2(CT) 13.5 mL/dL (15.0-23.0); PCO2(98.6) 44 mmHg (35-45); PO2(98.6) 105 mmHg (60-100); SAMPLE BLOOD; SAO2 95.4 % (95.0-100.0); pH(98.6) 7.32 (7.35-7.45)
[2016-09-17 10:37] LABS: MODALITY VENTILATOR
--- NOTE | 2016-09-17 13:28 | PROGRESS NOTE ---
DATE: 09/17/2016 SUBJECTIVE: The patient currently sedated, intubated. OBJECTIVE: Vital Signs: Temperature 98.3 degrees, pulse 105, respiratory rate 21, blood pressure 157/85. Intake 2.5 L. Output 2.4 L. PHYSICAL EXAMINATION: General: This is a middle-aged gentleman resting in bed. He is currently intubated, mechanically ventilated. HEENT: Normocephalic, atraumatic. Orally intubated. Neck is supple. No JVD. Cardiovascular: Regular rate and rhythm. Tachycardic. S3. Pulmonary: Equal excursion. He does continue to have scattered wheezes bilaterally. Abdomen soft, positive bowel sounds. : Not inspected. Pitts catheter noted. Extremities: Left BKA. Right wounds noted with dressings to the lower extremity. He has an AV fistula left upper extremity. LABORATORY DATA: WBC of 11, hemoglobin 9.7. Sodium 140, potassium 5.5, CO2 or 23. Creatinine 7.4. Calcium 8.1, phosphorus 8.1. Albumin 3.4. He had blood cultures with gram positive cocci and gram-negative rods. ASSESSMENT AND PLAN: 1. End-stage renal disease management. We will continue to dialyze him on a Friday, Friday, and Friday schedule. We are contacting his dialysis clinic in [place] to find who his recreation instructor is. 2. Electrolytes, acid-base balance, anemia. These are stable. Continue to dialyze on Friday, Friday, Friday. 3. Hypotension. He does remain on low-dose Clay. 4. Positive blood cultures. He is on vancomycin and Zosyn at appropriate dosing. Seen, data reviewed, discussed with Steven Palomo on 09/17/16. I agree with the above assessment and plan of care. rg Dictated by HAILEE Storey for Mukesh Dupree MD cc: Mukesh Dupree MD [facility]
[2016-09-17] MEDS: FOLIC ACID 1 MG in NS 50 ML IV SCH (17:27)
--- NOTE | 2016-09-17 20:27 | CONSULTATION ---
DATE OF CONSULTATION: 09/17/2016 CONCLUSION: The patient has a polymicrobial bacteremia, the exact origin of the bacteremia is unclear to me at this time. The patient does have a gangrenous right finger, but I do not think the area is bad enough that it would be causing a bacteremia. He does have on chest x-ray a left lower lobe infiltrate which could be pneumonia and could be associated with a polymicrobial bacteremia. Also, I think it is possible that he has some intra-abdominal focus of infection involving the GI tract or the biliary system that could be causing his polymicrobial bacteremia. RECOMMENDATIONS: I agree with treating with vancomycin and Zosyn. This is day 1 of vancomycin and day 2 of Zosyn. I have ordered a CT scan of the abdomen and pelvis without contrast for tomorrow morning. DISCUSSION: The patient is intubated. No family member is present. Therefore the history is taken from a review of the data in the computer. He was originally seen in the hospital because of an altered mental status and respiratory failure. He came to intensive care unit where he was intubated. Thus far his CBC shows a white count of 11,020, hemoglobin 9.7, and platelet count 134,000. Blood gases show a pH of 7.32, a PO2 of 105, a pCO2 of 44. The patient's creatinine is 7.4, GFR is 10. Urinalysis showed no white cells or bacteria. Chest x-ray shows left lower lobe infiltrate. Sputum grew a normal yamileth. Blood cultures are growing gram positive cocci and gram negative rods. PAST MEDICAL HISTORY: Positive for end-stage renal disease. The patient is on dialysis. The patient also has a history of a stroke. He has got gangrene of the distal right index finger. He has hypertension, hyperlipidemia, coronary artery disease and vasculopathy. PAST SURGICAL HISTORY: Positive for left fxnri-qpy-qroa amputation and a right arm AV fistula. SOCIAL HISTORY: He does not smoke cigarettes or abuse alcohol. He has smoked marijuana on occasion. He is . REVIEW OF SYSTEMS: Unobtainable. FAMILY HISTORY: Said to be noncontributory. ALLERGIES: No known drug allergies. HOME MEDICATIONS: Norvasc, Lipitor, carvedilol, [place], Levemir, lisinopril. PHYSICAL EXAMINATION: Vital Signs: Temperature is 97.3 degrees, pulse 81, respirations 14, blood pressure 123/76. General: This is an ill-appearing, middle-aged male who is in no acute distress. He is intubated and sedated. Head, eyes, ears, nose and throat: No drainage noted from the nose or ears. Neck: No meningismus. Thorax: No increased AP diameter. Lungs: Clear to auscultation. Cardiovascular: Regular heart rate. Abdomen: Soft and not tender. In the left groin area there is a triple-lumen catheter present. Extremities: Patient has a left below- the-knee amputation. In the right arm he has an AV fistula which is functional. Neurologic: The patient is obtunded. He did not respond to verbal stimuli. There was no tremor. During my examination, he did not move his extremities. Integument: On the patient's right leg there are dark areas where there appears to be a possible early necrosis. Thank you for the consult. cc: Jay Devine MD
[2016-09-18] MEDS: ZOSYN 2.25 GM/NS 2.25 GM/50 ML IVPB IV SCH ×3 (00:38→17:00)
[2016-09-18] MEDS: DIPRIVAN 1% 1,000 MG/100 ML BOTTLE IV SCH ×2 (00:39→06:50)
[2016-09-18 04:53] LABS: ALLEN TEST YES; BE -5.4 mmoll (-3.0-3.0); BLOOD TYPE ARTERIAL; DRAW SITE R RADIAL; PCO2(98.6) 38 mmHg (35-45); PO2(98.6) 130 mmHg (60-100); SAMPLE BLOOD; SRATE 14 BPM; THB < 3.0 g/dL (11.5-17.4); TVOL 500 mL; pH(98.6) 7.33 (7.35-7.45)
[2016-09-18 04:54] LABS: MODALITY VENTILATOR
[2016-09-18 06:03] LABS: HEMATOCRIT 28.8 % (42.0-52.0); MCH 29.2 PG (27-31); MCHC 31.3 g/dL (33-37); MCV 93.5 FL (81-99); MPV 11.3 FL (7.4-10.4); RBC 3.08 XMIL (4.7-6.1)
[2016-09-18] MEDS: HUMULIN R SUBQ SCH ×4 (06:32→20:48)
[2016-09-18 06:33] LABS: ALBUMIN 3.3 g/dL (3.5-5.0); CALCIUM 8.7 mg/dL (8.8-10.2); POTASSIUM 5.9 mmol/L (3.5-5.1)
--- NOTE | 2016-09-18 06:56 | PROGRESS NOTE ---
DATE: 09/18/2016 SUBJECTIVE: No major changes. OBJECTIVE: Vital Signs: Patient is currently afebrile. Pulse is in the 60s. Blood pressure, he is on Clay-Synephrine. O2 saturation 100% on the ventilator. General Examination: Sedated, on the ventilator. HEENT: Normocephalic and atraumatic. Pupils equal, round, and reactive to light. Mucous membranes moist. Oropharynx benign. Neck: Supple. Trachea midline. ET tube in place. Cardiovascular: Regular rate and rhythm. Lungs: Referred airway noises. Abdomen: Soft, nontender, nondistended. Extremities: Stable. Necrosis noted in the distal aspect of the right index finger. Vascular: Examination is essentially unchanged. Laboratory: White blood cell count is 8. Remainder of labs reviewed. ASSESSMENT/PLAN: A 46-year-old, male with dry gangrene of his right upper extremity, 1st digit. 1. Multiple medical comorbidities, currently at this time being managed by the hospitalist service. We will have these issues resolved before we deal with anything surgically. 2. 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 At this time, it appears stable, has not progressed. Does not seem to get any signs of wet gangrene. We will continue to monitor and continue local wound care. cc: Solitario Tang MD
--- NOTE | 2016-09-18 07:35 | Diag Imaging Result Doc PS360 ---
EXAM: CHEST-PORTABLE INDICATION: respiratory failure TECHNIQUE: One view COMPARISON: 09/17/2016 FINDINGS: Support tubes and lines are in stable positions. There is elevation of the right hemidiaphragm similar to the previous study. There is suggestion of mild bibasilar atelectasis and/or infiltrate similar to the previous study. No new consolidations are appreciated. Cardiac silhouette is stable. IMPRESSION: Essentially stable chest. Electronically signed by Todd Damon 09/18/2016 7:33 AM
[2016-09-18] MEDS ORDERED: NS 2,000 ML MISC PRN (07:42)
--- NOTE | 2016-09-18 09:17 | Diag Imaging Result Doc PS360 ---
ABDOMEN/PELVIS W/O CONTRAST - 09/18/2016 INDICATION: bacteremia TECHNIQUE: A CT dose reduction protocol was used. COMPARISON: Prior chest x-rays FINDINGS: There are significant central infiltrates in the lung bases particularly the lower lobes, with air bronchograms. There is a nasogastric tube with the tip in the stomach. No radiodense renal stones or urinary obstruction. There is severely advanced vascular calcification of all the arterial beds including mesenteric, renal, and peripheral arteries. The pelvic and femoral arteries are particularly badly calcified. Pitts catheter in the urinary bladder. The prostate and rectum are normal. No bowel obstruction or inflammation. Other soft tissues are grossly normal. Bony structures are intact. IMPRESSION: 1. Bilateral central pulmonary infiltrates, nonspecific but suggesting pneumonia or aspiration. 2. Extremely advanced arterial disease. Electronically signed by Addy Glass 09/18/2016 9:14 AM
[2016-09-18] MEDS: PROTONIX IV SCH (09:42)
[2016-09-18] MEDS: HEPARIN SUBQ SCH ×2 (09:42→20:59)
[2016-09-18] MEDS: SODIUM CHLORIDE 0.9% INJ SCH (09:42)
[2016-09-18] MEDS ORDERED: NS 2,000 ML ONE (09:56)
--- NOTE | 2016-09-18 10:37 | PROGRESS NOTE ---
DATE: 09/18/2016 SUBJECTIVE: He remains sedated, on the ventilator. Apparently failed a weaning trial yesterday. OBJECTIVE: Vital Signs: Blood pressure 128/49, heart rate 68, respirations 14, afebrile. Intake 0.8 L, output 210 mL. Physical Examination: General: Sedated, unresponsive. No distress. Skin: Warm and dry. HEENT: Conjunctivae are pink. Pupils are equal. Neck: Neck veins are not distended. Trachea is midline. Heart: Regular without gallops. Lungs: Have equal breath sounds. No crackles or wheezes. Abdomen: Soft, nontender. Bowel sounds are present. Extremities: Have no edema, clubbing, or cyanosis. Diagnostic Data: CT of abdomen and pelvis performed today with bilateral pulmonary infiltrates suggesting pneumonia and advanced arteriolar disease. Laboratory Data: Sodium 142, potassium 5.9, chloride 95, bicarbonate 18, BUN 45, creatinine 8.8. Hemoglobin 9. IMPRESSION: 1. End-stage kidney disease. He will have his routine hemodialysis today with a goal of 2 L ultrafiltration, 2 potassium bath. 2. Electrolytes: Significant hyperphosphatemia and moderate hyperkalemia. These will be treated with dialysis today. 3. Acid-base. Increased anion gap has waxed and waned. Primarily related to his renal disease. Lactate is less than 1. 4. Anemia: Hemoglobin has fallen progressively during his hospital stay and does not meet criteria for transfusion. We will dose with erythropoietin. cc: Mukesh Dupree MD
[2016-09-18] MEDS: D5W 1,000 ML IV SCH (11:18)
[2016-09-18 14:17] LABS: ALLEN TEST YES; BE 3.6 mmoll (-3.0-3.0); BLOOD TYPE ARTERIAL; DRAW SITE L RADIAL; O2(CT) 14.9 mL/dL (15.0-23.0); PCO2(98.6) 39 mmHg (35-45); PO2(98.6) 133 mmHg (60-100); SAMPLE BLOOD; SAO2 96.4 % (95.0-100.0); THB 10.8 g/dL (11.5-17.4); pH(98.6) 7.46 (7.35-7.45)
[2016-09-18 14:18] LABS: MODALITY VENTILATOR
[2016-09-18] MEDS: VANCOMYCIN 1 GM/NS 1 GM/250 ML IVPB IV SCH (15:27)
[2016-09-18] MEDS: FOLIC ACID 1 MG in NS 50 ML IV SCH (17:00)
--- NOTE | 2016-09-18 18:17 | PROGRESS NOTE ---
DATE: 09/18/2016 PRESENT ILLNESS: The patient has a polymicrobial bacteremia, consisted of staph hominis and Pseudomonas aeruginosa. MEDICATIONS: Patient currently is receiving vancomycin and Zosyn, the doses of which have been tapered because of the patient's end-stage renal disease. I agree with treating the patient with the combination of vancomycin and Zosyn. PHYSICAL EXAMINATION: Vital Signs: Temperature is 97, pulse 84, respirations 14, blood pressure 82/63. Generally: This is an ill-appearing, middle-aged male. He is in no acute distress. Lungs: Clear to auscultation. Cardiovascular: Regular heart rate. Abdomen: Soft and nontender. Extremities: The patient has in his right arm an AV fistula which is functioning. The patient has a left zccrg-ntn-yxre amputation. Patient also has gangrene of the right index finger. LAB AND X-RAY: CT scan of the abdomen and pelvis showed bibasilar infiltrates. Blood culture is growing staph hominis and Pseudomonas. CBC shows a white count of 8860, hemoglobin 9 and platelet count 97,000. Blood gases show a pH of 7.46, a pO2 of 133, pCO2 of 39. ASSESSMENT AND PLAN: The patient has a polymicrobial bacteremia. I think it is possible that this occurred from a pneumonia as seen on the CAT scan. Also, since the patient is on dialysis, he may have had a bacteremia after his AV fistula was being used for dialysis. COMORBIDITIES: He has end-stage renal disease. He is on dialysis. He has a gangrene of the distal right finger. He has evidence of peripheral vascular disease as seen on the CT scan. cc: Jay Devine MD
--- NOTE | 2016-09-18 18:49 | PROGRESS NOTE ---
DATE: 09/18/2016 SUBJECTIVE: Still intubated. Basically unresponsive. OBJECTIVE: Vital signs: Temperature was a 100.1 degrees, pulse 90, respirations 20, blood pressure 107/87. Lungs: Are clear anterolateral. Cardiovascular: Regular rate without murmur or S3. Abdomen: Soft. Skin: Warm and dry. : The urine output was over 8 L. LABORATORY: White count 8860, hematocrit 28, platelet count 97,000. Chemistry: Sodium 142, potassium 3.9, chloride 95, bicarb 18, BUN 45, creatinine was 8.8, blood sugars 83, 65,79, 69. ASSESSMENT AND PLAN: 1. Patient with polymicrobial bacteremia consistent with Staph hominis and Pseudomonas aeruginosa. I see the vancomycin and Zosyn dose has been tapered because of end-stage. Patient has end-stage renal disease. Continue to treat with combination of vancomycin and Zosyn. 2. End-stage renal disease, have routine hemodialysis done today with a goal of 2 L ultrafiltration. 3. Acid-base. Increased anion gap does wax and wane. I suspect this is probably related to his renal disease. Lactate is less than 1. 4. Anemia. Hemoglobin has fallen progressively during this hospital stay, but does not meet criteria for transfusing yet. He had a CT of the abdomen and pelvis today, has bilateral central pulmonary infiltrates. Nonspecific though suggesting pneumonia or aspiration, and extremely advanced in arterial disease. I have reviewed the orders. I do not see any change. cc: Brandon Pro MD
[2016-09-19] MEDS: ZOSYN 2.25 GM/NS 2.25 GM/50 ML IVPB IV SCH ×3 (05:05→19:13)
[2016-09-19] MEDS: NEO-SYNEPHRINE 50 MG in NS 250 ML IV SCH (05:05)
--- NOTE | 2016-09-19 06:05 | Diag Imaging Result Doc PS360 ---
EXAM: CHEST-PORTABLE HISTORY: respiratory failure TECHNIQUE: Portable COMPARISON: 09/18/2016 FINDINGS: The endotracheal tube and nasogastric tube have been removed. The lungs are well expanded. The heart is not enlarged. No consolidation. Mild increased interstitial markings medially in the right base are unchanged. No pleural effusions identified. There are fewer interstitial markings in the left lung. IMPRESSION: Mild interval improvement. Electronically signed by Jaswant Sparks 09/19/2016 6:03 AM
[2016-09-19] MEDS: HUMULIN R SUBQ SCH ×4 (06:23→21:31)
[2016-09-19] MEDS: D5W 1,000 ML IV SCH (07:05)
--- NOTE | 2016-09-19 07:24 | PROGRESS NOTE ---
DATE: 09/19/2016 SUBJECTIVE: Patient was extubated. Discussed his overall case with his nurse ck. He has had no major issues. She is slowing taking down his Clay-Synephrine. OBJECTIVE: Vital Signs: Patient's temperature max is 101.1, most recent pulse 90, most recent respiratory rate 22, most recent blood pressure 117/79. He is currently on 5 mcg of Clay- Synephrine. General Examination: No acute distress. Able to communicate somewhat. HEENT: Normocephalic, atraumatic. Pupils equal, round, and react to light. Mucous membranes moist. Oropharynx benign. Neck: Supple. Trachea midline. Cardiovascular: Regular rate and rhythm. Lungs: Some coarse sounds. Abdomen: Soft, nontender, nondistended. Extremities: Stable necrosis noted to the distal aspect of the right index finger. It does not seem to have any signs of wet gangrene. It still appears just to be a dry gangrene. Vascular: Examination is essentially unchanged. Laboratory: Pending for this morning. ASSESSMENT AND PLAN: A 46-year-old, male with dry gangrene of the distal aspect of his right index finger. 1. Multiple medical comorbidities, currently being managed by the hospitalist service. 2. Dry gangrene of the index finger. At this time, patient will likely need amputation. We will discuss with the hospitalist about potential timing. cc: Solitario Tang MD
[2016-09-19] MEDS: DUONEB (A & A) INH PRN (07:27)
[2016-09-19] MEDS: HEPARIN SUBQ SCH ×2 (09:11→21:48)
[2016-09-19] MEDS: PROTONIX IV SCH (09:14)
[2016-09-19 10:12] LABS: HEMATOCRIT 31.4 % (42.0-52.0); HEMOGLOBIN 9.9 g/dL (14.0-18.0); MCH 28.4 PG (27-31); MCHC 31.5 g/dL (33-37); MCV 90.2 FL (81-99); MPV 11.1 FL (7.4-10.4); RBC 3.48 XMIL (4.7-6.1)
--- NOTE | 2016-09-19 10:12 | PROGRESS NOTE ---
DATE: 09/19/2016 SUBJECTIVE: Mr. Vasquez is extubated. He is a awake and alert. OBJECTIVE: Vital signs: Temperature 98.2 degrees, pulse 87, respirations 23, blood pressure 126/95. Urine output very poor. LABORATORIES: Reviewed from today. CBC from yesterday hematocrit stable at 28. Electrolytes reviewed. Creatinine was 8.8. ASSESSMENT AND PLAN: 1. 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 Able to wean down some of the Clay-Synephrine. Dr. Tang is following the finger. 2. Patient polymicrobial bacteremia consistent with Staph hominis and Pseudomonas aeruginosa. He is on vancomycin and Zosyn. 3. End-stage renal disease. Electrolytes and acid base appeared to be acceptable. 4. Anemia of chronic disease, aware. Dr. Dupree and Dr. Devine are following. Reviewed orders. I do not see any change at this point. cc: Brandon Pro MD
[2016-09-19 11:08] LABS: ALBUMIN 3.7 g/dL (3.5-5.0); CALCIUM 8.7 mg/dL (8.8-10.2)
[2016-09-19] MEDS: TYLENOL PO PRN ×2 (14:07→22:08)
[2016-09-19] MEDS: FOLIC ACID 1 MG in NS 50 ML IV SCH (15:22)
--- NOTE | 2016-09-19 15:28 | PROGRESS NOTE ---
DATE: 09/19/2016 SUBJECTIVE: Patient is resting in bed, awake and alert. He has no complaints, aside from some pain to his right hand. OBJECTIVE: Vital Signs: Temperature 98 degrees, pulse 90, respiratory rate 21 , blood pressure 141/95. Intake 1.2 L. Output 4.1 L. General: Middle-aged gentleman resting in bed. Awake alert, and interacting appropriately. HEENT: Normocephalic, atraumatic. Conjunctivae pink. Oral mucosa moist. Neck: Supple. Trachea midline. Cardiovascular: Regular rate and rhythm. There is no murmur or gallop appreciated. Pulmonary: He has equal excursion. He is clear bilaterally. He is on nasal cannula. Abdomen: Soft. Positive bowel sounds. Genitourinary: Not inspected. He has a Pitts catheter with scant urine. Extremities: No clubbing, cyanosis, or edema. He does have amputations noted to the fingers of the right upper extremity. He does have some dry gangrene noted. Integumentary: Skin is warm and dry otherwise. LABORATORY DATA: WBC of 8.5, hemoglobin 9.9. Sodium 133, potassium 4.0, CO2 of 30, creatinine 6.6, albumin 3.7. ASSESSMENT AND PLAN: 1. End-stage renal disease management. The patient routinely dialyzes Friday, Friday, Friday. We will plan to dialyze him tomorrow, as per his routine. 2. Electrolytes, acid-base balance. We will address with dialysis. 3. Anemia, stable overnight. He has received erythropoietin. Continue this on dialysis. 4. Right upper extremity dry gangrene, followed by Primary and Surgery. Seen, data reviewed, discussed with Steven Palomo on 09/19/16. I agree with the above assessment and plan of care. rg Dictated by HAILEE Storey for Mukesh Dupree MD cc: Mukesh Dupree MD [facility]
--- NOTE | 2016-09-19 15:54 | PROGRESS NOTE ---
DATE: 09/19/2016 PRESENT ILLNESS: The patient has Staph hominis and Pseudomonas aeruginosa polymicrobic bacteremia. MEDICATIONS: The patient is receiving vancomycin and Zosyn the doses of which have been modified because the patient has end-stage renal disease. PHYSICAL EXAMINATION: Vital Signs: Temperature is 98.2 degrees, pulse 91, respirations 21, blood pressure 140/94. General: This is an ill-appearing, middle-aged male who is in no acute distress. Lungs: Clear to auscultation. Cardiovascular: Heart rate is regular. Abdomen: Soft and nontender. Extremities: The patient in his right arm has an AV fistula which is functional. The patient has an IV catheter in his left groin area which is not swollen or draining pus. Patient also has a left [id number]-swf-vclh amputation. Finally he has gangrene of the right index finger. LAB AND X-RAY: Chest x-ray shows improved infiltrates. Patient's CBC shows a white count of 8,590, hemoglobin 9.9, platelet count 119,000. Creatinine is 6.6. GFR is 11. ASSESSMENT AND PLAN: Patient has polymicrobic bacteremia. I think it originates either from being at dialysis from one of the dialysis machines or it could have originated from a pulmonary infection due to Staph and Pseudomonas. The patient also has peripheral vascular disease as seen on CT scan. cc: Jay Devine MD
[2016-09-19] MEDS: BENADRYL IV PRN (22:51)
[2016-09-20] MEDS: ZOSYN 2.25 GM/NS 2.25 GM/50 ML IVPB IV SCH ×3 (04:25→20:24)
[2016-09-20] MEDS: HUMULIN R SUBQ SCH ×4 (06:21→20:24)
[2016-09-20 06:45] LABS: ALBUMIN 3.5 g/dL (3.5-5.0); CALCIUM 8.8 mg/dL (8.8-10.2); POTASSIUM 4.1 mmol/L (3.5-5.1)
[2016-09-20 06:48] LABS: HEMATOCRIT 30.4 % (42.0-52.0); HEMOGLOBIN 9.7 g/dL (14.0-18.0); MCH 28.8 PG (27-31); MCHC 31.9 g/dL (33-37); MCV 90.2 FL (81-99); MPV 11.3 FL (7.4-10.4); RBC 3.37 XMIL (4.7-6.1)
[2016-09-20] MEDS ORDERED: HEPARIN IV PRN (07:00)
[2016-09-20] MEDS ORDERED: NS 2,000 ML MISC PRN (07:00)
[2016-09-20] MEDS ORDERED: TIGHT: 0.2 ML/HR MISC PRN (07:00)
--- NOTE | 2016-09-20 07:04 | PROGRESS NOTE ---
DATE: 09/20/2016 SUBJECTIVE: No major issues reported by the nursing staff. He is doing okay. He has been taken off his Clay-Synephrine. OBJECTIVE: Vital Signs: The patient is currently afebrile. Most recent pulse 87, most recent blood pressure 117/62. General: No acute distress. HEENT: Normocephalic, atraumatic. Pupils equal, round, reactive to light. Mucous membranes moist. Oropharynx benign. Neck: Supple. Trachea midline. Cardiovascular: Regular rate and rhythm. Lungs: Some coarse sounds. Abdomen: Soft, nontender, nondistended. Extremity: Stable necrosis noted to the distal aspect of the right index finger. He does not at this time have any signs of wet gangrene. Vascular exam is essentially unchanged. LABORATORY DATA: Reviewed from yesterday. ASSESSMENT AND PLAN: A 46-year-old male with dry gangrene at the distal aspect of the right index finger. 1. Multiple medical comorbidities, currently being managed by the hospitalist service. 2. Dry gangrene of the index finger. At this time, the patient seems to be stabilizing. We will likely plan on amputation next week. cc: Solitario Tang MD
[2016-09-20] MEDS ORDERED: NS 2,000 ML ONE (07:56)
[2016-09-20] MEDS ORDERED: HEPARIN ONE (07:56)
[2016-09-20] MEDS: EPOGEN SUBQ SCH (08:00)
--- NOTE | 2016-09-20 08:10 | PROGRESS NOTE ---
DATE: 09/20/2016 SUBJECTIVE: He is more interactive today. He is hungry. Denies shortness of breath. OBJECTIVE: Blood pressure 141/74, heart rate 86, respirations 21, temperature 99.1 degrees. Generally, he is again more alert in no acute distress. Skin is warm and dry. No changes in his right hand. Pupils are equal. Conjunctivae are pink. Neck veins are not appreciated. Trachea is midline. Heart: PMI is displaced laterally and enlarged. Regular rate and rhythm with a prominent S4. Lungs have equal breath sounds without crackles or wheezes. Abdomen is soft, nontender. Bowel sounds are present. Extremities have no edema, clubbing, or cyanosis. LABORATORY DATA: Sodium 133, potassium 4.1, chloride 89, bicarbonate 22. BUN 33, creatinine 8.0. Hemoglobin 9.7. IMPRESSION: 1. End-stage kidney disease. He will have his routine hemodialysis treatment today. Standard 2 potassium bath. 2. Electrolytes acceptable. 3. Acid base acceptable. 4. Anemia below target, but acceptable. Continue folate and erythropoietin. 5. Sepsis. I appreciate consultants. cc: Mukesh Dupree MD
[2016-09-20] MEDS: HEPARIN SUBQ SCH ×2 (12:23→20:42)
[2016-09-20] MEDS: VANCOMYCIN 1 GM/NS 1 GM/250 ML IVPB IV SCH (12:25)
[2016-09-20] MEDS: NEO-SYNEPHRINE 50 MG in NS 250 ML IV SCH (12:44)
[2016-09-20] MEDS: TYLENOL PO PRN (13:45)
[2016-09-20] MEDS: BENADRYL IV PRN (13:45)
[2016-09-20] MEDS: FOLIC ACID 1 MG in NS 50 ML IV SCH (15:25)
--- NOTE | 2016-09-20 17:55 | PROGRESS NOTE ---
DATE: 09/20/2016 PRESENT ILLNESS: The patient has a Pseudomonas aeruginosa and Staph hominis polymicrobial bacteremia. I think it's origin could be from the patient's AV fistula occurring during dialysis. Initially I thought the patient may have pneumonia which could have been the origin of the polymicrobial bacteremia. MEDICATIONS: The patient is receiving vancomycin and Zosyn the doses of which are modified because the patient has end-stage renal disease. The patient has been on both antibiotics for a total of 5 days. PHYSICAL EXAMINATION: Vital Signs: Temperature is 98.9 degrees, pulse 107, respirations 21, blood pressure 124/55. General: This is an ill-appearing middle-aged male. He is in no acute distress. He feels much better today. In fact he was asking when he could go home. Lungs: Clear to auscultation. Cardiovascular: Regular heart rate. Abdomen: Soft and nontender. Extremities: Patient's right index finger has dry gangrene on the tip of it. Patient has a left [id number]-[id number]-[id number] amputation. Patient has an AV fistula in the upper part of the right arm. LAB AND X-RAY: The CBC today shows a white count of 6160, hemoglobin 9.7 and platelet count 95,000. Creatinine is 8, the GFR is 9. Blood cultures are growing Staph and Pseudomonas. Repeat blood cultures show no growth at 48 hours. ASSESSMENT AND PLAN: I plan to treat the patient for a total of 14 days with the current antibiotic regimen. COMORBIDITIES: Include end-stage renal disease, hemodialysis and peripheral vascular disease. cc: Jay Devine MD
[2016-09-21] MEDS: ZOSYN 2.25 GM/NS 2.25 GM/50 ML IVPB IV SCH ×3 (06:02→19:11)
[2016-09-21] MEDS: NEO-SYNEPHRINE 50 MG in NS 250 ML IV SCH (06:03)
[2016-09-21] MEDS: HUMULIN R SUBQ SCH ×4 (06:12→20:27)
[2016-09-21 06:27] LABS: HEMATOCRIT 36.7 % (42.0-52.0); HEMOGLOBIN 11.8 g/dL (14.0-18.0); MCH 28.6 PG (27-31); MCHC 32.2 g/dL (33-37); MCV 89.1 FL (81-99); MPV 11.8 FL (7.4-10.4); RBC 4.12 XMIL (4.7-6.1)
[2016-09-21 06:54] LABS: ALBUMIN 4.2 g/dL (3.5-5.0); CALCIUM 9.3 mg/dL (8.8-10.2)
--- NOTE | 2016-09-21 08:39 | PROGRESS NOTE ---
DATE: 09/21/2016 SUBJECTIVE: No complaints regarding his hand this morning. OBJECTIVE: No fevers. Heart rates has been from 70s to low 100. PHYSICAL EXAMINATION: He is alert. His right index finger has some dry necrosis at the distal aspect but no purulence, no cellulitis. ASSESSMENT AND PLAN: A 46-year-old male with some digital ischemia of the right very distal index finger. It is almost auto-amputated. Would continue Betadine paint to this area and observation. If he is having significant pain, could pursue amputation, although this is not seem to be the case right now. We will continue to monitor. cc: Ilya Snell MD
[2016-09-21] MEDS: HEPARIN SUBQ SCH ×3 (09:38→21:03)
--- NOTE | 2016-09-21 09:51 | PROGRESS NOTE ---
DATE: 09/21/2016 SUBJECTIVE: Mr. Vasquez is feeling better. He says that it [birth year] today. His right finger appears dry with an area of ischemia but there is no drainage. His breathing is comfortably. OBJECTIVE: Vital Signs: Temperature is 97.5, pulse 90, respirations 18, and blood pressure 203/101. Blood pressure has been pretty labile. Respiratory: The lungs are clear anterolateral and posterior. Cardiovascular: Regular rate and rhythm without murmur or S3. Abdomen: Soft. Skin: Warm and dry. He had dialysis yesterday and he got over 3 L off I believe. LABORATORY DATA: White count is 6,170, hematocrit 36, and platelet count 167,000. Sodium is 141, potassium 4.0, chloride 94, BUN 30, creatinine 6.7, and blood sugar 233 and 284. ASSESSMENT AND PLAN: 1. Digital ischemia of the right very distal index finger, almost autoamputated. Continue Betadine and observation. If he is having significant pain I would pursue amputation. He seems to be comfortable at this point. 2. Pseudomonas aeruginosa, staph hominis, and polymicrobial bacteremia. Could be from the AV fistula during dialysis. Initially we thought the patient had pneumonia which could be the origin as well with the polymicrobial bacteremia. Continue present antibiotics, vancomycin and Zosyn. 3. End-stage renal disease. Continue dialysis. His volume status and electrolytes look good. 4. Diabetes mellitus type 2. Continue sliding scale. He is eating better. REVIEW OF ORDERS: I do not know if I see any change at this point. He is still on vancomycin and Zosyn. If blood pressure stabilizes he can probably go to the floor. At this point, it still seems to be pretty labile. He is on Levemir 6 units b.i.d. at home and I may start him back on that and see if we can get a little tighter control of his sugar. cc: Brandon Pro MD
[2016-09-21] MEDS: LEVEMIR SUBQ SCH ×2 (10:50→20:19)
[2016-09-21] MEDS ORDERED: CALMOSEPTINE OINTMENT TOP PRN (11:12)
--- NOTE | 2016-09-21 13:35 | PROGRESS NOTE ---
DATE: 09/21/2016 SUBJECTIVE: He is feeling better. He is asking for lunch. No shortness of breath or other complaints. OBJECTIVE: Vital Signs: Blood pressure 203/101, heart rate 90, respiration 18, afebrile. Intake 1.4 L. Output 4 L. General: No acute distress. Skin: Warm and dry. Conjunctivae are pink. Neck: Neck veins are not distended. Heart: Regular with prominent S4. Lungs: Have equal breath sounds. No crackles. Abdomen: Soft, nontender. Bowel sounds present. Extremities: Have no edema, clubbing, or cyanosis. LABORATORY DATA: Sodium 141, potassium 4.0, chloride 94, bicarbonate 24, BUN 30, creatinine 6.7, hemoglobin 11.8. IMPRESSION: 1. End-stage kidney disease. He had dialysis yesterday. No plans for today. 2. Volume status in target. 3. Electrolytes/acid base/anemia, all in target. 4. Bacteremia. Most recent blood cultures are negative. cc: Mukesh Dupree MD
[2016-09-21] MEDS: FOLIC ACID 1 MG in NS 50 ML IV SCH (16:10)
[2016-09-21] MEDS: TYLENOL PO PRN (19:28)
[2016-09-22] MEDS: BENADRYL IV PRN (02:54)
[2016-09-22] MEDS: ZOSYN 2.25 GM/NS 2.25 GM/50 ML IVPB IV SCH ×3 (03:49→22:29)
[2016-09-22 05:27] LABS: HEMATOCRIT 33.6 % (42.0-52.0); HEMOGLOBIN 10.5 g/dL (14.0-18.0); MCH 28.7 PG (27-31); MCHC 31.3 g/dL (33-37); MCV 91.8 FL (81-99); MPV 12.7 FL (7.4-10.4); RBC 3.66 XMIL (4.7-6.1)
[2016-09-22 06:00] LABS: ALBUMIN 3.7 g/dL (3.5-5.0); CALCIUM 9.2 mg/dL (8.8-10.2); POTASSIUM 4.1 mmol/L (3.5-5.1)
[2016-09-22] MEDS: HUMULIN R SUBQ SCH ×4 (06:13→22:23)
[2016-09-22] MEDS: HEPARIN SUBQ SCH ×2 (08:42→22:29)
[2016-09-22] MEDS: LEVEMIR SUBQ SCH ×2 (08:42→22:26)
--- NOTE | 2016-09-22 11:11 | PROGRESS NOTE ---
DATE: 09/22/2016 SUBJECTIVE: Mr. Vasquez is awake and alert. Feels good. He is requesting to moved to the floor. OBJECTIVE: Vital signs: Afebrile, temp 98.8 degrees, pulse 95, respirations 17, blood pressure 149/87. HEENT: Pupils are equal, round. Lungs: Clear in all lung maravilla. Cardiovascular: Regular rhythm and rate without murmur or S3. Abdomen: Soft. Skin: Warm and dry. Intake and output: Urine output mL. LAB: White count 5,780, hematocrit 33, platelet count is 134,000. Chemistry: Sodium 142, potassium 4.1, chloride 97, BUN 45, creatinine 8.3. Blood sugars 376, 139, 213. ASSESSMENT AND PLAN: 1. End-stage kidney disease. Continue dialysis. Had dialysis yesterday. Volume status, electrolytes, acid base appear to be in target. 2. Pseudomonas aeruginosa, Staphylococcal hominis, polymicrobial bacteremia. Could be from AV fistula during dialysis. Could also be from pneumonia or respiratory origin. So, continue present antibiotics. He appears to be clinically doing better. 3. End-stage renal disease. 4. Digital ischemia right distal index which is dry and seems to be healing. 5. Diabetes mellitus type 2. Continue pattern sugars. 6. Review of orders. Move to the floor. cc: Brandon Pro MD
[2016-09-22] MEDS: FOLIC ACID 1 MG in NS 50 ML IV SCH (15:31)
[2016-09-22] MEDS ORDERED: LEVEMIR INSULIN *HA SUBQ SCH (21:00)
[2016-09-22] MEDS: LIPITOR PO SCH (22:29)
[2016-09-23] MEDS: ZOSYN 2.25 GM/NS 2.25 GM/50 ML IVPB IV SCH ×3 (04:37→20:46)
[2016-09-23] MEDS: HUMULIN R SUBQ SCH ×4 (06:32→20:46)
[2016-09-23] MEDS ORDERED: HEPARIN IV PRN (06:37)
[2016-09-23] MEDS ORDERED: NS 2,000 ML MISC PRN (06:37)
[2016-09-23] MEDS ORDERED: TIGHT: 0.2 ML/HR MISC PRN (06:37)
[2016-09-23 07:20] LABS: HEMATOCRIT 31.2 % (42.0-52.0); HEMOGLOBIN 10.1 g/dL (14.0-18.0); MCH 28.9 PG (27-31); MCHC 32.4 g/dL (33-37); MCV 89.4 FL (81-99); RBC 3.49 XMIL (4.7-6.1)
--- NOTE | 2016-09-23 07:23 | PROGRESS NOTE ---
DATE: 09/23/2016 SUBJECTIVE: The patient is more alert and awake. I had a lengthy discussion with the patient about the duration of symptoms of his finger. He has had several weeks, not 6 weeks. He said that he is seeing nobody for this. Reviewed notes from the weekend. OBJECTIVE: Vital Signs: Patient is currently afebrile. His vital signs are stable. General Examination: No acute distress. More alert today. HEENT: Normocephalic, atraumatic. Pupils equal, round, react to light. Mucous membranes moist. Oropharynx benign. Neck : Supple. Trachea midline. Cardiovascular: Regular rate and rhythm. Lungs: Grossly clear. Abdomen: Soft, nontender, nondistended. Extremities: Stable dry gangrene to the distal aspect of the right index finger. Vascular exam: Unchanged. LABORATORY: White blood cell count 5, hematocrit 33. Remainder of labs reviewed. Microbiology noted that he had Staph and Pseudomonas. ASSESSMENT/PLAN: A 46-year-old male with multiple medical comorbidities , with dry gangrene at the distal aspect of right index finger. 1. Multiple medical comorbidities. At this time he is being managed by multiple specialties and getting dialysis. His most recent blood cultures have been negative since his initial positive ones. We will defer further management on those issues to the primary care team. 2. Distal right index finger with dry gangrene at this time. After discussion with the patient, it has been going on for several weeks. Suspect that essentially almost auto -amputate. Will continue local wound care and monitor at this time. No immediate plans for surgical intervention. cc: Solitario Tang MD [facility]
[2016-09-23 07:45] LABS: ALBUMIN 3.4 g/dL (3.5-5.0); CALCIUM 8.9 mg/dL (8.8-10.2); POTASSIUM 4.8 mmol/L (3.5-5.1)
[2016-09-23] MEDS ORDERED: INSULIN PEN NEEDLES ONE (08:00)
[2016-09-23] MEDS ORDERED: HEPARIN ONE (09:12)
[2016-09-23] MEDS ORDERED: NS 2,000 ML ONE (09:12)
--- NOTE | 2016-09-23 10:45 | PROGRESS NOTE ---
DATE: 09/23/2016 TIME SEEN: 07:05. SUBJECTIVE: Mr. Vasquez is resting quietly in bed. He denies chest pain or increased work of breathing. States that he is feeling a little bit better. OBJECTIVE: His most recent vital signs, temperature 98.4, blood pressure 177/96 , heart rate 93, respirations are 18. He is on room air. Last recorded saturation 95%. He has had 270 in. He has only had 25 mL out per void. LABS: Sodium 143, potassium 4.8, chloride 100, CO2 of 21, BUN 63, creatinine 10.3, glucose 101. His anion gap is 22, calcium 8.9, phosphorus 8.6, albumin 3.4. White count 6.53 , hemoglobin 10.1, hematocrit 31.2 with a platelet count of 161,000. PHYSICAL EXAMINATION: General: This is a 46-year-old male who is resting quietly in bed. He denies any pain. No increased work of breathing. Skin: Warm and dry. HEENT: Normocephalic, atraumatic. Conjunctiva is pale. He has LILLIANA. Mucous membranes moist. Neck: Supple. Trachea midline. No JVD. Cardiovascular: Regular rate and rhythm. He does have a positive S4. Lungs: Clear to auscultation anteriorly. Equal excursion on room air. Abdomen: Round , soft, nontender. Positive bowel sounds. Extremities: Have no edema. No clubbing or cyanosis. Neurological: Alert and oriented x3. ASSESSMENT AND PLAN: 1. End-stage renal disease. Patient is due for his routine dialysis treatment today. We will place him on a 2 K bath. He is to dialyze for 3.5 hours. We will attempt to pull him to his dry weight. 2. Electrolytes. These are stable. 3. Acid-base balance. This is stable. 4. Anemia. This is close to target. 5. Bacteremia. Patient's white cells have continued to improve. He remains on Zosyn, renally dosed and vancomycin after each dialysis treatment. This is also followed by the primary care team. I would to thank you for allowing us to follow with this patient. Seen, data reviewed, discussed with Kalie Pickering on 09/23/16. I agree with the above assessment and plan of care. rg Dictated by HAILEE Reed for Mukesh Dupree MD cc: HAILEE Reed MD [facility]
[2016-09-23] MEDS: LEVEMIR SUBQ SCH ×2 (14:16→20:47)
[2016-09-23] MEDS: HEPARIN SUBQ SCH ×2 (14:17→20:46)
[2016-09-23] MEDS: EPOGEN SUBQ SCH (14:25)
--- NOTE | 2016-09-23 16:37 | PROGRESS NOTE ---
DATE: 09/23/2016 PRESENT ILLNESS: The patient has a Pseudomonas and Staph hominis polymicrobial bacteremia which I think originates from the patient's AV fistula occurring during dialysis. MEDICATIONS: This is the 8th day of treatment with a combination of vancomycin and Zosyn. The doses of which are modified because of the patient's end-stage renal disease. PHYSICAL EXAMINATION: Vital Signs: Temperature is 98.7 degrees, pulse 102, respirations 18, blood pressure 107/62. General: This is an ill-appearing, middle-aged male who is in no acute distress. Neurologic: Patient is lethargic today. He did respond to verbal stimuli. Lungs: Clear to auscultation. Cardiovascular: Regular heart rate. I did not hear a murmur. Abdomen: Soft and nontender. Extremities: The patient has an AV fistula in the right upper arm. The site is not swollen or tender. The patient has a left [id number]-[id number] amputation. LAB AND X-RAYS: CBC today is shows a white count of 6,530, hemoglobin 10.1, and platelet count 161,000. The patient's creatinine is 10.3. The GFR is 6. ASSESSMENT AND PLAN: As mentioned above, this is the 8th day of treatment with antibiotics. I plan to treat him for 6 more days to complete a 14 day antibiotic regimen for the patient's bacteremia. The patient's comorbidities include end-stage renal disease, hemodialysis, and peripheral vascular disease. cc: Jay Devine MD
[2016-09-23] MEDS: FOLIC ACID 1 MG in NS 50 ML IV SCH (16:52)
--- NOTE | 2016-09-23 18:02 | PROGRESS NOTE ---
DATE: 09/23/2016 SUBJECTIVE: He feels good today. He had dialysis this morning. He is breathing comfortably, afebrile. He is asking about when he gets to go home. I explained that the family would like him to go to rehab, and I think he is willing to do that. He said he wanted to go home before he goes to rehab, but I explained that it would probably be better for him to go to rehab from here, and so we are going to try and set that up. OBJECTIVE: Vital Signs: Temperature 99 degrees, pulse 18, blood pressure 154/79. HEENT: Pupils are equal, round. Lungs: Clear in all lung maravilla. Cardiovascular: Regular rhythm and rate without murmur or S3. Abdomen: Soft. Skin: Warm and dry. Weight: His weight is 125 pounds. We dialyzed and took 4.5 liters off. LABORATORY DATA: White count 6530, hematocrit 31, platelet count 161,000. Sodium 143, potassium 4.3, chloride 100, BUN 63, creatinine 10.3. Blood sugar 392, 250, 101. Albumin 3.4. ASSESSMENT AND PLAN: 1. Pseudomonas and Staphylococcus hominis polymicrobial bacteremia, which I think originates in patients with arteriovenous fistula occurring during dialysis. This is his eighth of treatment with combination vancomycin and Zosyn, the doses of which are modified because of the patient's end-stage renal disease. He is to complete 14 days. 2. End-stage renal disease. He had dialysis today. His volume, electrolytes, acid-base looked good. 3. Anemia. Seems to be on target. 4. General weakness and deconditioning. Continue physical therapy. 5. Distal right index finger with dry ischemia at the tip. It seems to be healing well. cc: Brandon Pro MD
[2016-09-23] MEDS: LIPITOR PO SCH (20:46)
[2016-09-23] MEDS: TYLENOL PO PRN (21:40)
[2016-09-24] MEDS: ZOSYN 2.25 GM/NS 2.25 GM/50 ML IVPB IV SCH ×3 (04:24→21:01)
[2016-09-24] MEDS: HUMULIN R SUBQ SCH ×4 (06:51→21:03)
--- NOTE | 2016-09-24 07:39 | PROGRESS NOTE ---
DATE: 09/24/2016 SUBJECTIVE: Reviewed notes from other physicians. No major issues. OBJECTIVE: Vital Signs: Patient is currently afebrile. His vital signs are stable. General: No acute distress. Resting comfortably. HEENT: Normocephalic, atraumatic. Pupils equal, round, reactive to light. Mucous membranes moist. Oropharynx benign. Neck: Supple. Trachea midline. Cardiovascular: Regular rate and rhythm. Lungs: Grossly clear. Abdomen: Soft, nontender, nondistended. Extremities: Stable dry gangrene to the distal aspect of the right index finger. Vascular exam unchanged. LABORATORY: Reviewed. Microbiology- most recent blood cultures negative after 5 days. ASSESSMENT AND PLAN: 1. A 46-year-old male with multiple medical comorbidities with dry gangrene of the distal aspect of the right index finger. Multiple medical comorbidities at this time, being managed by the hospitalist service and subspecialties. We will defer further management to them. 2. Distal right index finger with dry gangrene at this time. This has been going on for several weeks. I suspect this area will essentially auto-amputate. Will continue local wound care at this time. I will be available if needed. cc: Solitario Tang MD
[2016-09-24] MEDS: TYLENOL PO PRN ×3 (08:33→21:02)
[2016-09-24 08:34] LABS: HEMATOCRIT 33.3 % (42.0-52.0); HEMOGLOBIN 10.6 g/dL (14.0-18.0); MCH 28.6 PG (27-31); MCHC 31.8 g/dL (33-37); MPV 11.7 FL (7.4-10.4); RBC 3.7 XMIL (4.7-6.1)
[2016-09-24] MEDS: LEVEMIR SUBQ SCH ×2 (08:34→21:03)
[2016-09-24] MEDS: HEPARIN SUBQ SCH ×2 (08:35→21:03)
[2016-09-24 09:02] LABS: ALBUMIN 3.8 g/dL (3.5-5.0); CALCIUM 9.1 mg/dL (8.8-10.2); POTASSIUM 4.3 mmol/L (3.5-5.1)
--- NOTE | 2016-09-24 11:27 | PROGRESS NOTE ---
DATE: 09/24/2016 TIME SEEN: 0820. SUBJECTIVE: Mr. Vasquez is resting quietly in bed. States that his right hand is giving him some pain. Otherwise, he denies chest pain or increased work of breathing. OBJECTIVE: Vital Signs: His most recent vital signs are temperature 98.4 degrees, blood pressure 107/46, heart rate 83, respirations 16. He is on room air. Last recorded saturation 97%. He has had 700 in. He has had 2720 out on dialysis. General: This is a 46-year-old male who is currently resting in bed. He has no acute distress. Skin: Warm and dry. HEENT: Normocephalic, atraumatic. Conjunctivae pale. He has LILLIANA. Mucous membranes are moist. Neck: Supple. Trachea midline. No JVD. Cardiovascular: He has regular rate and rhythm. He has a positive S4. Lungs: Clear to auscultation anteriorly. Equal excursion on room air. Abdomen: Round, soft, nontender. Positive bowel sounds. Extremities: Have no edema. No clubbing or cyanosis. Right hand has good movement, able to make a fist. Good radial pulse. Neurological: Alert and oriented x3. LABORATORY: Sodium 140, potassium 4.3, chloride 95, CO2 of 28, BUN 39, creatinine 7.5, glucose 163. Anion gap 17. Calcium 9.1. Phosphorus 7. Albumin 3.8. White count 7, hemoglobin 10.6, hematocrit 33.3, with a platelet count of 201,000. ASSESSMENT AND PLAN: 1. End-stage renal disease. Patient is due for his routine dialysis treatment in the a.m. We will plan for dialysis at that time on appropriate potassium bath. 2. Electrolytes and acid-base balance. These remain stable. 3. Acidosis. This is stable. 4. Bacteremia. Patient continues on renal-dosed antibiotics, followed by the primary care team. I would like to thank you for allowing us to follow with this patient. Seen, data reviewed, discussed with Kalie Pickering on 09/24/16. I agree with the above assessment and plan of care. rg Dictated by HAILEE Reed for Mukesh Dupree MD cc: HAILEE Reed MD [facility]
--- NOTE | 2016-09-24 15:35 | PROGRESS NOTE ---
DATE: 09/24/2016 PRESENT ILLNESS: The patient has a Pseudomonas and Staph polymicrobial bacteremia. I think this originated from his AV fistula during dialysis. MEDICATIONS: This is the 9th day of treatment with the combination of vancomycin and Zosyn. The doses of the antibiotics are modified because the patient has end-stage renal disease and is on dialysis. PHYSICAL EXAMINATION: Vital Signs: Temperature is 98.8 degrees, pulse 87, respirations 18, blood pressure 120/93. General: Today the patient is somewhat lethargic, appears in no acute distress. Lungs: Clear to auscultation. Cardiovascular: Regular heart rate. Abdomen: Soft and nontender. Extremities: The right arm has a functioning AV fistula which does not appear to be more swollen and there is no drainage coming from it. LAB AND X-RAYS: There is no new x-ray. The CBC for today shows a white count of 7000, hemoglobin 10.6 and platelet count 201,000. Creatinine is 2.5. The GFR is 10. ASSESSMENT AND PLAN: My plan is to continue the patient's antibiotics for 5 more days to complete his 14 day treatment course for the bacteremia. COMORBIDITIES: Include end-stage renal disease, hemodialysis and peripheral vascular disease. cc: Jay Devine MD
[2016-09-24] MEDS: FOLIC ACID 1 MG in NS 50 ML IV SCH (16:39)
--- NOTE | 2016-09-24 16:58 | PROGRESS NOTE ---
DATE: 09/24/2016 SUBJECTIVE: He is resting, sleeping comfortably. He was easy to arouse. No complaints. Breathing comfortably. OBJECTIVE: Vital signs: Pulse 87, respirations 18, blood pressure 120/93. CVP is less than 6 cm from angle of Julian. Lungs: Clear anterolateral. Cardiovascular: Regular rhythm and rate without murmur or S3. Abdomen: Soft. Skin: Warm and dry. LABORATORY: Blood sugar 284, 202, 250. White count 7000. Hematocrit 33, platelet count 201,000. Sodium 140, potassium 4.3, chloride 95, bicarb 28, BUN 39, creatinine 7.5, blood sugars 284-218, 202. ASSESSMENT AND PLAN: 1. The patient has Pseudomonas and Staph polymicrobial bacteremia. Suspect it may be from the AV fistula. Doing better. He has got a combination of vancomycin and Zosyn. Continue these treatments. 2. End-stage renal disease, on hemodialysis. His volume status, electrolytes, acid-base on target. 3. Anemia of chronic disease. Aware. 4. Some right hand digital ischemia, which appears to be healing and drying up. Surgery has been following, Dr. Tang. He has dry gangrene of the distal aspect of the right index finger. The nurses reported that the urine is a little bit of carmona colored. He has a Pitts catheter in. We will discuss with Dr. Dupree whether we need to continue this Pitts catheter. 5. Review of orders, I do not see any change at this point. cc: Brandon Pro MD
[2016-09-24] MEDS: LIPITOR PO SCH (21:05)
[2016-09-25] MEDS: TYLENOL PO PRN ×4 (03:36→21:46)
[2016-09-25] MEDS: ZOSYN 2.25 GM/NS 2.25 GM/50 ML IVPB IV SCH ×2 (03:39→11:38)
[2016-09-25] MEDS: HUMULIN R SUBQ SCH ×4 (06:29→21:43)
[2016-09-25] MEDS ORDERED: NS 2,000 ML MISC PRN (07:27)
[2016-09-25 07:54] LABS: ALBUMIN 3.5 g/dL (3.5-5.0); CALCIUM 8.4 mg/dL (8.8-10.2); POTASSIUM 4.7 mmol/L (3.5-5.1)
[2016-09-25] MEDS: HEPARIN SUBQ SCH ×2 (10:00→21:42)
[2016-09-25] MEDS: LEVEMIR SUBQ SCH ×2 (10:02→21:43)
[2016-09-25] MEDS: EPOGEN SUBQ SCH (10:26)
[2016-09-25] MEDS ORDERED: NS 2,000 ML ONE (11:00)
--- NOTE | 2016-09-25 14:25 | PROGRESS NOTE ---
DATE: 09/25/2016 DATE SEEN: 09/25/2016 TIME SEEN: 08:05 SUBJECTIVE: Mr. Vasquez is resting quietly in bed. He states that his right hand does hurt this a.m. He is eating his breakfast. He is in no acute distress. VITAL SIGNS: His most recent vital signs are temperature 98.3 degrees, blood pressure 108/49, heart rate 81, respirations 16. He is on room air. Last recorded saturation is 99%. He has had 820 in. He has had 50 mL void. LABORATORIES: His most recent labs are sodium 139, potassium 4.7, chloride 95, CO2 23, BUN 61, creatinine 10, glucose 146. Anion gap 21, calcium 8.4, phosphorus 8.8, albumin 3.5. His most recent hemoglobin 10.6 on the . His clostridium difficile stool culture was negative. PHYSICAL EXAMINATION: General: This is a 46-year-old, male. He is currently resting in bed. He is in no acute distress, though he appears chronically ill. Skin: Warm and dry. HEENT: Normocephalic, atraumatic. Conjunctivae pale. He has LILLIANA. Mucous membranes moist. Neck: Supple. Trachea midline. No JVD. Cardiovascular: Regular rate and rhythm. Positive S4. Lungs: Clear to auscultation anteriorly. Equal excursion on room air. Abdomen: Soft, nontender. Positive bowel sounds. Extremities: No edema. No clubbing or cyanosis. He has a left BKA. Right hand has good movement. Good pulses palpable. Neurological: Alert and oriented x3. ASSESSMENT AND PLAN: 1. End-stage renal disease. Patient is due for his routine dialysis treatment today. We will place him on a 2K bath. He is to dialyze for 3.5 hours. We will attempt to pull him to his dry weight. 2. Electrolytes and acid-base balance. These remain stable. 3. Anemia. This has been stable. 4. Bacteremia. He continues to be followed on renal dosed antibiotics per primary care. I would to thank you for allowing us to follow with this patient. Seen, data reviewed, discussed with Kalie Pickering on 09/25/16. I agree with the above assessment and plan of care. rg Dictated by HAILEE Reed for Mukesh Dupree MD cc: HAILEE Reed MD MTDD
[2016-09-25] MEDS ORDERED: TAZIDIME 1 GM in NS 50 ML IV SCH (14:45)
--- NOTE | 2016-09-25 14:54 | PROGRESS NOTE ---
DATE: 09/25/2016 SUBJECTIVE: The patient is resting comfortably in bed. He complains of pain in the groin area. OBJECTIVE: Vital Signs: Temperature 98 degrees, blood pressure 189/99, heart rate 92, respirations 19, O2 saturations 97% on room air. General: This is a middle- aged male, lying in bed, in no acute distress. Head: Normocephalic, atraumatic. Heart: S1, S2. Normal. Tachycardic. Lungs: Clear to auscultation bilaterally. Abdomen: Positive bowel sounds. Soft, nontender, nondistended. Extremities: The patient has dry gangrene involving the right index finger. Neurologic: The patient is awake and alert. LABS: Sodium 139, potassium 4.7, chloride 95, CO2 23, BUN 61, creatinine 10, glucose 146. ASSESSMENT AND PLAN: 1. Acute hypoxemic respiratory failure status post extubation. Resolved. 2. Aspiration pneumonia. Resolved. 3. Bacteremia secondary to Pseudomonas and Staphylococcus hominis. The patient will continue on vancomycin and Zosyn as directed by Dr. Devine. The patient will be continued at Rehab. 4. End-stage renal disease. Continue with dialysis as scheduled by the auto roller. 5. Right index finger gangrene. Continue with wound care. Hopefully this will autoamputate. 6. Diabetes mellitus type 2. Continue on sliding scale insulin. 7. Anemia of chronic disease. The patient's hemoglobin and hematocrit are stable. 8. Hypoglycemia. Resolved. 9. Hematuria. Will check a urinalysis. 10. Disposition. We will plan to discharge the patient to rehab tomorrow. cc: MD STERLING Banerjee
--- NOTE | 2016-09-25 15:17 | PROGRESS NOTE ---
DATE: 09/25/2016 PRESENT ILLNESS: The patient currently is receiving treatment for a combined Pseudomonas and Staph polymicrobial bacteremia, which I think originated from the patient's AV fistula during dialysis. MEDICATIONS: This is day 10 of treatment with vancomycin and Zosyn. The doses of the 2 antibiotics have been modified because the patient has end-stage renal disease and is on dialysis. PHYSICAL EXAMINATION: Vital Signs: Temperature is 98.8 degrees, pulse 93, respirations 14, blood pressure 189/99. General: This is an ill-appearing lethargic middle-aged male who is in no acute distress. Lungs: Clear to auscultation. Cardiovascular: Heart rate is regular. Abdomen: Soft and nontender. Extremities: Patient is again being dialyzed now. The dialysis needles are in the patient's AV fistula. LABORATORY AND X-RAY: The creatinine today was 10, GFR is 7. There is no new CBC. There is no new radiographic data for today either. There is no further new laboratory tests. ASSESSMENT AND PLAN: 1. As mentioned above, I plan to treat the patient for 4 more days with the vancomycin and I have switched from Zosyn to ceftazidime. Both of those 2 agents can be given after dialysis. I am trying to contact the rubber mill operator who will be managing the patient when he has moved to the rehab facility. I will ask the rubber mill operator to give vancomycin 1 g and ceftazidime 1 g after each dialysis for 4 more days. 2. Comorbidities include end-stage renal disease, peripheral vascular disease and hemodialysis. cc: Jay Devine MD
[2016-09-25 18:20] LABS: URINE SOURCE CATH
[2016-09-25 18:29] LABS: BILIRUBIN URINE NEGATIVE (NEGATIVE); BLOOD URINE LARGE (NEGATIVE); COLOR ORANGE; GLUCOSE URINE 200 mg/dL (NEGATIVE); LEUKOCYTES URINE NEGATIVE (NEGATIVE); NITRITE URINE NEGATIVE (NEGATIVE); PH URINE 8.5; PROTEIN URINE >600 mg/dL (NEGATIVE); SP GRAVITY URINE 1.041; TURBIDITY URINE TURBID (CLEAR); URINE MICRO REVIEW NEEDED? YES; UROBILINOGEN URINE NORMAL (NORMAL)
[2016-09-25 18:30] LABS: UR EPITHELIAL CELLS >10 /HPF (<10); URINE BACTERIA NEGATIVE /HPF; URINE RBC TNTC /HPF (<10); URINE WBC <10 /HPF (<10)
[2016-09-25 18:36] LABS: URINE CASTS NONE SEEN; URINE CRYSTALS NONE SEEN; URINE SMALL ROUND CELLS NONE SEEN
[2016-09-25] MEDS: FOLIC ACID 1 MG in NS 50 ML IV SCH (18:43)
[2016-09-25] MEDS: LIPITOR PO SCH (21:43)
[2016-09-25] MEDS ORDERED: HEPARIN ONE (23:55)
[2016-09-26] MEDS: TYLENOL PO PRN ×3 (01:16→15:17)
[2016-09-26] MEDS: HUMULIN R SUBQ SCH ×2 (06:42→15:13)
[2016-09-26 07:22] LABS: HEMATOCRIT 37.1 % (42.0-52.0); HEMOGLOBIN 11.7 g/dL (14.0-18.0); MCH 29.1 PG (27-31); MCHC 31.5 g/dL (33-37); MCV 92.3 FL (81-99); MPV 12.3 FL (7.4-10.4); RBC 4.02 XMIL (4.7-6.1)
[2016-09-26 07:33] LABS: CALCIUM 9.3 mg/dL (8.8-10.2); POTASSIUM 4.6 mmol/L (3.5-5.1)
[2016-09-26 07:48] VITALS: BP 95/14
--- NOTE | 2016-09-26 09:04 | PROGRESS NOTE ---
DATE: 09/26/2016 PRESENT ILLNESS: The patient is being treated for a Pseudomonas and Staph polymicrobial bacteremia, which I think originated from the patient's AV fistula during dialysis. MEDICATIONS: This is day 11 of treatment with both of the above-named agents. PHYSICAL EXAMINATION: Vital Signs: Temperature is 98.8 degrees, pulse 102, respirations 20, blood pressure 95/14. General: This is a chronically ill-appearing, middle-aged male. He is in no acute distress. Lungs: Clear to auscultation. Cardiovascular: Regular heart rate. Abdomen: Soft and nontender. Extremities: The patient's AV fistula in the right arm is not swollen or bleeding. LAB AND X-RAY: There is no new radiographic study. The patient's CBC for today shows white count of 10,380, hemoglobin 11.7, and platelet count 269,000. Urinalysis was negative for bacteria and white cells. The patient's creatinine is 7.6. The GFR is 9. ASSESSMENT AND PLAN: Patient has 3 more days of the combination that yesterday I switched to vancomycin and ceftazidime; the ceftazidime is replacing Zosyn. That way, both the vancomycin and the ceftazidime can be given after dialysis, and we will not have to have a separate intravenous for antibiotics. COMORBIDITIES: The patient's comorbidities include end-stage renal disease, peripheral vascular disease, and hemodialysis. cc: Jay Devine MD
[2016-09-26] MEDS: HEPARIN SUBQ SCH (09:55)
[2016-09-26] MEDS: LEVEMIR SUBQ SCH (10:13)
--- NOTE | 2016-09-26 10:43 | PROGRESS NOTE ---
DATE: 09/26/2016 TIME SEEN: 0800. SUBJECTIVE: Mr. Vasquez is resting quietly in bed. He does states that his right arm continues to hurt. This has continued on a daily basis. He does get some relief but not complete relief from medications that they have been giving him. He denies chest pain. No increased work of breathing. OBJECTIVE: Vital Signs: Temperature 98.6 degrees, blood pressure 112/64, heart rate 72, respirations 17 he is on room air. Last recorded saturation 97%. He has had 820 In. He has had 50 mL out. He had dialysis yesterday. This has not been recorded in regards with output. LABORATORY DATA: Sodium 140, potassium 4.6, chloride 93, CO2 of 27. BUN 40, creatinine 7.6, glucose 187. Anion gap 20. Calcium 9.3, phosphorus 7.6. Albumin 4. White count 10.38, hemoglobin 11.7, hematocrit 37.1 with a platelet count of 269,000. Patient has a positive urinalysis with pending urine culture from yesterday. PHYSICAL EXAMINATION: General: This is a 46-year-old, -Swiss male. He is currently resting in bed. He is in no acute distress though he appears chronically ill. Skin is warm and dry. HEENT: Normocephalic, atraumatic. Conjunctivae pale. He has LILLIANA. Mucous membranes moist. Neck is supple. Trachea midline. No JVD. Cardiovascular: Regular rate and rhythm. He has a positive S4. Lungs are clear to auscultation anteriorly. Equal excursion on room air. Abdomen is soft, nontender. Positive bowel sounds. Extremities have no edema. No clubbing or cyanosis. He has a left BKA. Right hand has good movement. Good palpable pulses though continues with aching and pain to the hand. Neurologic: Alert and oriented x3. ASSESSMENT AND PLAN: 1. End-stage renal disease. Patient is due for his routine dialysis treatment in the a.m. There are no indications for intervention today. 2. Electrolytes, acid-base balance, and anemia. These remain stable. 3. Bacteremia. This has continued to improve. Followed by the primary care team and Infectious Disease. I would to thank you for allowing us to follow with this patient. Seen, data reviewed, discussed with Kalie Pickering on 09/26/16. I agree with the above assessment and plan of care. rg Dictated by HAILEE Reed for Mukesh Dupree MD cc: HAILEE Reed MD [facility]
--- NOTE | 2016-09-26 12:12 | DISCHARGE SUMMARY ---
ADMISSION DATE: 09/15/2016 DISCHARGE DATE: 09/26/2016 FINAL DISCHARGE DIAGNOSES: 1. Acute hypoxemic respiratory failure. 2. Metabolic encephalopathy secondary to severe hypoglycemia. 3. Aspiration pneumonia. 4. Bacteremia secondary to Pseudomonas aeruginosa and Staphylococcus hominis. 5. End-stage renal disease. 6. Anemia of chronic disease. 7. Right index finger dry gangrene. 8. Diabetes mellitus type 2. CONSULTATIONS REQUESTED DURING THIS HOSPITAL STAY: 1. Pulmonary critical care consultation with Dr. Bhat. 2. Nephrology consultation with Dr. Dupree. 3. General Surgery consultation with Dr. Tang. 4. Infectious Disease consultation with Dr. Devine. IMAGING PERFORMED DURING THIS HOSPITAL STAY: 1. Portable chest x-ray performed on 09/15/2016 which revealed a slight prominence of the central vasculature. 2. Head CT performed on 09/15/2016 that revealed bilateral large mastoid air cell effusions and sinus mucosal disease. Mild chronic changes, but no acute intracranial pathology. 3. Two dimensional echocardiogram performed on 09/15/2016 that revealed severe concentric left ventricular hypertrophy with an ejection fraction of 60%. Grade 1 diastolic dysfunction. Aortic valve sclerosis without stenosis. 4. A CT of the abdomen and pelvis performed on 09/18/2016 that revealed central pulmonary infiltrates. Severely advanced vascular calcification of all the arteries, including the mesenteric, renal and peripheral arteries. PROCEDURES PERFORMED DURING THIS HOSPITAL STAY: Left femoral triple-lumen catheter placement. HOSPITAL COURSE: Mr. Vasquez is a 46-year-old male with a history of severe peripheral vascular disease, end-stage renal disease on hemodialysis and hypertension, who was brought to the ER unresponsive. Prior to arrival in the ER, the patient was noted to have a severely low blood glucose of around 26. The patient was intubated and placed on the ventilator upon arrival to the ER. A head CT was done that was noted to be unremarkable. A chest x-ray was done that did reveal the possibility of aspiration pneumonia. The patient was admitted to the medical ICU under the hospitalist service. Blood and sputum cultures were obtained and the patient was started on broad- spectrum antibiotic therapy. Nephrology, as well as pulmonary critical care were consulted for further assistance with this patient's care. The patient was initially started on D 5 half-normal saline, and his blood sugars were checked every hour due to the severe hypoglycemia. Eventually the patient's blood sugars stabilized. The patient was dialyzed throughout the hospitalization. The patient's respiratory status slowly improved, and he was able to be extubated. The blood cultures grew out Pseudomonas aeruginosa and Staphylococcus hominis. The patient's antibiotics were continued. In light of these findings, the patient received a total of ten days of Zosyn and vancomycin. The patient improved enough and was transferred to the medical floor. The patient on admission was noted to have a dry gangrene of the right index finger. So, general surgery was consulted. After further assessment it was decided not to amputate the digit, and to just allow it to auto-amputate and wound care was instituted. The patient was also seen by physical therapy, and it was recommended that the patient be sent to an inpatient rehabilitation center. The patient was switched to ceftazidime and vancomycin and the Zosyn was discontinued. Today, the patient is medically stable for discharge to inpatient rehabilitation. The patient will need to complete 3 more days of vancomycin and ceftazidime, both of which will be infused after the patient's dialysis session. FINAL DISCHARGE MEDICATIONS: 1. Folic acid 1 mg p.o. daily. 2. Vancomycin 1 g IV after dialysis for 3 more doses. 3. Ceftazidime 1 g IV after dialysis for 3 more doses. 4. [place] 5/325, 1 tab oral every 6 hours p.r.n. for pain. 5. Lipitor 10 mg p.o. at bedtime. 6. Levemir 6 units subcutaneous twice a day. DISCHARGE DIET: Renal and diabetic diet. ACTIVITY: As tolerated. FOLLOWUP INSTRUCTIONS: The patient will be discharged to [facility] today. The patient will continue with his routine dialysis sessions scheduled on Friday, Friday and Friday at [facility]. cc: Carol Morales MD
== END 2016-09-26 15:00 ==
LOC: ED 06:18 → ICU 08:45 → SUATTDRO 08:45 → 3N 09-22 14:19
PROVIDERS: ATTEND Internal Medicine

== ENCOUNTER 2016-11-15 18:55 | Inpatient (IN) ==
[2016-11-15 21:33] LABS: MANUAL DIFF NEEDED? NO
[2016-11-15 21:49] LABS: CALCIUM 8.9 mg/dL (8.8-10.2); POTASSIUM 4.7 mmol/L (3.5-5.1)
[2016-11-15 21:51] LABS: BASO% 0.5 % (0.0-0.8); EOS# 0.26 X1000 (0.0-0.7); HEMATOCRIT 22.7 % (42.0-52.0); HEMOGLOBIN 6.9 g/dL (14.0-18.0); IMM GRAN# 0.02 X1000 (0.0-0.04); IMM GRAN% 0.3 % (0.0-0.5); LYMPH# 1.24 X1000 (1.2-3.4); LYMPH% 19.3 % (20.5-51.1); MCH 27.4 PG (27-31); MCHC 30.4 g/dL (33-37); MCV 90.1 FL (81-99); MONO% 9.3 % (1.7-9.3); MPV 11.1 FL (7.4-10.4); NEUT% 66.6 % (42.2-75.2); PLT 148 X1000 (130-400); RBC 2.52 XMIL (4.7-6.1)
[2016-11-15] MEDS ORDERED: DILAUDID IV ONE (23:04)
[2016-11-15] MEDS ORDERED: DILAUDID ONE (23:09)
[2016-11-16] MEDS ORDERED: NORCO-7.5 PO PRN (00:44)
[2016-11-16] MEDS ORDERED: ZOFRAN IV PRN (00:44)
[2016-11-16 01:11] LABS: HDL 36 mg/dL (35-55); LDL 96 mg/dL; TRIGLYCERIDES 114 mg/dL (39-160); VLDL 23 mg/dL
[2016-11-16 01:32] LABS: HEMOGLOBIN A1C 7.1 % (4.8-6.0)
[2016-11-16] MEDS ORDERED: NS 250 ML ONE (02:28)
[2016-11-16 05:17] VITALS: BP 185/94
[2016-11-16] MEDS: HUMALOG SUBQ SCH ×3 (06:31→17:23)
[2016-11-16 07:17] LABS: MANUAL DIFF NEEDED? NO
[2016-11-16 07:25] LABS: BASO% 0.9 % (0.0-0.8); EOS# 0.31 X1000 (0.0-0.7); EOS% 5.8 % (0.0-10.0); HEMATOCRIT 26.9 % (42.0-52.0); HEMOGLOBIN 8.3 g/dL (14.0-18.0); LYMPH# 1.38 X1000 (1.2-3.4); LYMPH% 25.8 % (20.5-51.1); MCH 27.3 PG (27-31); MCHC 30.9 g/dL (33-37); MCV 88.5 FL (81-99); MONO# 0.46 X1000 (0.11-0.59); MONO% 8.6 % (1.7-9.3); MPV 11.3 FL (7.4-10.4); NEUT% 58.9 % (42.2-75.2); PLT 148 X1000 (130-400); RBC 3.04 XMIL (4.7-6.1)
[2016-11-16 07:39] LABS: CALCIUM 8.6 mg/dL (8.8-10.2); MAGNESIUM 2.2 mg/dL (1.5-2.7); POTASSIUM 4.7 mmol/L (3.5-5.1)
[2016-11-16] MEDS ORDERED: EPOGEN SUBQ ONE (13:12)
--- NOTE | 2016-11-16 13:42 | CONSULTATION ---
DATE OF CONSULTATION: 11/16/2016 REASON FOR CONSULTATION: Anemia evaluation and treatment. HISTORY OF PRESENT ILLNESS: Mr. Vasquez is a 46-year-old black male who is known to me from 1 recent admission to the hospital. He is diabetic on chronic insulin and has hypertension and end-stage kidney disease. He also has severe peripheral vascular disease and has had a BKA on the left and has multiple chronic wounds on the right, both on the right heel as well as the right great toe. He is a patient of the nephrologists from [place]. He lives in [place] but he has been staying with his mother for the last 2 months or so and consequently is dialyzing in our dialysis unit. He was not aware that he was anemic. He has not had blood in his bowels. No abdominal pain. No nausea or vomiting. No change in his bowel habits. No shortness of breath, chest discomfort, chills, fevers, etc. PAST MEDICAL HISTORY: As above. HOME MEDICATIONS: Include hydrocodone, atorvastatin, insulin, folate, PhosLo, multivitamin, mirtazapine, amlodipine. ALLERGIES: None. SOCIAL HISTORY: As above. FAMILY HISTORY: Otherwise noncontributory. REVIEW OF SYSTEMS: Otherwise noncontributory. PHYSICAL EXAMINATION: Vital Signs: Blood pressure 185/94, heart rate 89, respirations 12, afebrile. General: A chronically ill, middle-aged man, no acute distress. Skin: Warm and dry. He has dry eschar on the posterior right foot. There is also an eschar on the right 1st toe and on the right knee. HEENT: Pupils are equal. Conjunctivae are pink. Oropharynx is clear and dry. Normal tongue. Neck: Supple. Trachea is midline. Neck veins are not distended. Heart: Regular with a gallop and a soft murmur. Lungs: Have equal breath sounds. No crackles or wheezes, accessory muscle use or retractions. Abdomen: Soft, nontender. Bowel sounds are present. Extremities: Have no edema. Left BKA. LABORATORY DATA: Sodium 141, potassium 4.7, chloride 99, bicarbonate 26, BUN 41, creatinine 7.5, hemoglobin 8.3. IMPRESSION: Anemia in a dialysis patient. He has received 2 units of packed red blood cells. He receives Aranesp at the outpatient dialysis unit. His hemoglobin has responded appropriately to transfusion and he has not developed signs or symptoms of volume overload or hyperkalemia. From my perspective, if no other workup is forthcoming regarding his anemia then he can be discharged and follow up with his doctors as an outpatient. cc: Mukesh Dupree MD
[2016-11-16] MEDS ORDERED: NORCO-5 PO PRN (15:42)
[2016-11-16] MEDS ORDERED: INSULIN LISPRO 5 UNIT SQ PRN (15:42)
[2016-11-16] MEDS ORDERED: PHOSLO PO SCH (17:00)
[2016-11-16] MEDS ORDERED: ARGININE PO SCH (21:00)
[2016-11-16] MEDS ORDERED: GLUTAMINE PO SCH (21:00)
[2016-11-16] MEDS ORDERED: LIPITOR PO SCH (21:00)
[2016-11-16] MEDS ORDERED: CALCIUM HMB PO SCH (21:00)
[2016-11-16] MEDS ORDERED: REMERON PO SCH (21:00)
[2016-11-17] MEDS ORDERED: NORVASC PO SCH (09:00)
[2016-11-17] MEDS ORDERED: FOLIC ACID PO SCH (09:00)
--- NOTE | 2016-11-17 20:32 | HISTORY AND PHYSICAL ---
CHIEF COMPLAINT: Shortness of breath. HISTORY OF PRESENT ILLNESS: Mr. Vasquez is a 46-year-old, male with a history of end-stage renal disease, on hemodialysis. He is a very poor historian. During the interview actually stated that he was at dialysis today, but he had to stop dialysis early and he was unsure why. Apparently, the patient does not see well and he may be hard of hearing. He does answer all questions appropriately. He is very delayed in answering these questions. At any rate, he arrived to the emergency room today and laboratory data showed a hemoglobin and hematocrit of 6.9 and 22.7, which was down from his baseline. So he will need to be transfused. He will be placed on the medical floor and should be able to go home if stable after blood transfusion. PAST MEDICAL HISTORY: 1. End-stage renal disease, on hemodialysis. 2. History of CVA. 3. Gangrenous right pointer finger. 4. Hypertension. 5. Hyperlipidemia. 6. CAD. 7. PVD. PREVIOUS SURGICAL HISTORY: Left quens-plr-iser amputation. Bilateral AV fistulas. The left is occluded. Circumcision. Amputation of the right 4th digit. FAMILY HISTORY: Family history was reviewed with the patient. However, he stated there was no extensive family history. SOCIAL HISTORY: He lives with his mom. He denies tobacco or alcohol use. He reportedly use marijuana, but has since stopped. HOME MEDICATIONS: A list is not reconciled at this time. We will place an order for nursing to reconcile. ALLERGIES: No known drug allergies. REVIEW OF SYSTEMS: Fourteen point review of systems conducted with the patient. States that he has general pain, but otherwise denies symptoms. Fourteen point review completed with the patient. Pertinent positives listed above in the HPI. All other systems reviewed and found to be negative. PHYSICAL EXAMINATION: VITAL SIGNS: Temperature 99.5 degrees, pulse 83, respirations 14, blood pressure 171/88, oxygen saturation 95% to 99% on 2 L nasal cannula. GENERAL: Slow to respond 46-year-old male lying in the ER stretcher. He is apparently hard of hearing and visually impaired, but does answer questions appropriately. In no acute distress. Appears to be chronically ill. HEENT: Head is atraumatic, normocephalic. Pupils equal, round, reactive to light. Extraocular eye movement intact. Sclerae is anicteric. Conjunctivae pale. Oral mucosa is dry. NECK: Supple. JVD noted. Trachea is midline. CARDIOVASCULAR: S1-S2 appreciated, regular rhythm. No murmurs, gallops, rubs. LUNGS: Clear to auscultation bilaterally. Diminished bilateral bases. No rhonchi, wheezes or rales. ABDOMEN: Soft, nondistended, nontender. Bowel sounds present in all 4 quadrants. Normoactive. No pulsatile mass. No organomegaly. EXTREMITIES: Left AV fistula which is occluded. Right AV graft fistula positive bruit and thrill. Left BKA noted. Right lower extremity 3 cm right heel and right great toe ulcerations which appears to be dry gangrene noted, very decreased pedal pulse. Cool to touch. NEUROLOGICAL: Slow to respond. He is oriented x3. Cranial nerves 2-12 appear to be grossly intact. LABORATORY DATA: WBC 6.42, hemoglobin 6.9, hematocrit 22.7, platelet count 148, 000. Sodium 141, potassium 4.7, chloride 96, carbon dioxide 23, BUN 34, creatinine 6.7, glucose 123. ASSESSMENT AND PLAN: 1. End-stage renal disease with hemodialysis. We will consult Dr. Dupree. 2. Anemia. Likely chronic secondary to #1. This has dropped fairly dramatically since his last admission. We will type and cross-match and transfuse 2 units and patient should be able to go home after transfusion. 3. Diabetes mellitus. Start sliding scale insulin. Check hemoglobin A1c. Fingerstick blood sugars before meals and at bedtime. 4. Hypertension: Continue home medications when appropriate. 5. Hyperlipidemia. Aware. Further recommendations per patient clinical course history. Dictated by HAILEE Malhotra for Elsa Alberts MD Seen and examined pt and discussed case with STOCKROOM KEEPER. cc: HAILEE Malhotra MD Reginald D. Gladish, MD [facility] SYSTEMYolanda
--- NOTE | 2016-11-21 08:20 | DISCHARGE SUMMARY ---
ADMISSION DATE: 11/16/2016 DISCHARGE DATE: 11/16/2016 DISCHARGE DIAGNOSES: 1. End-stage renal disease, on dialysis. 2. Anemia of chronic disease, improved. 3. Diabetes mellitus type 2. 4. Hypertension. 5. Hyperlipidemia. CONSULTATIONS: Dr. Mukesh Dupree from nephrology. HOSPITAL COURSE: This is a 46-year-old, male with a history of end-stage renal disease on dialysis who is a poor historian. Apparently, the history was that the patient was on dialysis and he had to stop it earlier. He was sent to the emergency department. The hemoglobin and hematocrit were 6.9 and 22.7 which was definitely down from his baseline. He was admitted to the hospital for a blood transfusion. He received 2 units of blood and the hemoglobin has increased to 8.3. The patient was feeling better. Less tiredness. He was evaluated the next day by Dr. Mukesh Dupree. He said that from his standpoint, he is good to go. Considering that the reason for admission was anemia and end-stage renal disease, patient was deemed stable to be sent to his [facility]. PHYSICAL EXAMINATION: Vital Signs: Temperature 98.6 degrees, heart rate 89, respiratory rate 12, blood pressure 177/91, O2 saturation 98% on room air. General Examination: This is a chronically ill-looking and frail, 46-year-old, male, looking older than his age, lying in bed, in no acute distress. He is apparently hard of hearing and visually impaired too. He does answer questions appropriately. Neck: Supple. No JVD. No carotid bruits. No lymphadenopathy. No thyromegaly. Cardiovascular Examination: S1 and S2 heard. No murmurs, gallops, or rubs. Regular rate and rhythm. Respiratory Examination: Clear bilaterally to auscultation. No work of breathing or using accessory muscles. Abdomen: Soft, nontender to palpation. Bowel sounds present. No organomegaly. Extremities: No clubbing, cyanosis, or edema. Peripheral pulses present in both legs. Examined the left AV fistula which is occluded and right AV fistula with positive bruit and thrill. Left BKA noted. Right lower extremity with a 3 cm right heel and great toe ulcerations which appear to be dry gangrene with pedal edema, cold to touch. Neurological Examination: Patient is slow to respond, although he is oriented in person and time. DISCHARGE DISPOSITION: Going back to his fdc. DISCHARGE MEDICATIONS: We have not made any changes to his home medications. cc: Arjun Sargent MD
--- NOTE | 2016-11-21 13:41 | PROVIDER DOCUMENTATION ---
This chart was entered by Farzad Noyola Scribe, acting as scribe for Perry Duran MD. HPI-General Adult - General Chief Complaint: Abnormal Lab[s] Stated Complaint: ABNORMAL LABS Time Seen by Provider: 11/15/16 19:28 Source: patient, EMS Allergies/Adverse Reactions: Patient Allergies Allergy/AdvReac Type Severity Reaction Status Date / Time No Known Allergies Allergy Verified 11/15/16 19:40 Home Medications: Home Medication List Medication Instructions Recorded Confirmed Last Taken Type ATORVAstatin [Lipitor] 10 mg PO QHS 09/15/16 11/16/16 11/14/16 18:00 History Hydrocodone/Acetaminophen [[place] 1 dose PO Q6HR PRN 09/15/16 11/15/16 09/14/16 19:00 History 5-325 Tablet] 1 DOSE Insulin Detemir [Levemir] 10 unit SQ BID 09/15/16 11/15/16 11/15/16 07:00 History Folic Acid 1 mg PO DAILY #30 tablet 09/26/16 11/16/16 11/15/16 07:00 Rx Insulin Lispro [Humalog Kwikpen 5 units SQ DIRECTED PRN 11/15/16 11/15/16 Unknown History U-100] Amlodipine Besylate [Norvasc] 5 mg PO DAILY 11/16/16 11/16/16 11/15/16 07:00 History Arginine/Glutamine/Calcium Hmb 1 each PO BID 11/16/16 11/16/16 11/15/16 07:00 History [Heraclio Packet] Calcium Acetate [Phoslo] 1,334 mg PO TID 11/16/16 11/16/16 11/15/16 07:00 History Hydrocodone/APAP 7.5 mg/325 mg 1 - 2 each PO Q6H PRN PRN #30 11/16/16 Unknown Rx [[place]-7.5] tablet Mirtazapine [Remeron] 15 mg PO QHS 11/16/16 11/16/16 11/14/16 20:00 History - History of Present Illness -Gen Adult Nature of Presenting Problems: Pt is a 46 yoaam who presents to ER via EMS from Dialysis with CC of "abnormal labs." Pt had labs drawn prior to leaving dialysis and is reported to have had a hemoglobin of 6.6 and would not be cleared to go back to alf with labs that low. Location of Pain/Injury: reports: none Pain Radiation: reports: no radiation Quality of Pain: reports: none Severity: reports: mild Onset/Duration: reports: unsure, just prior to arrival Timing: reports: still present Associated Symptoms: denies: anxiety, arm pain, back/neck pain, chest pain, fatigue, fever/chills, headaches, joint pain, loss of appetite, muscle aches, sinus congestion/drainage, shortness of breath, weakness, trouble walking Similar Symptoms Previously?: Yes Recently seen or treated by another doctor?: Yes Review of Systems - Adult - REVIEW OF SYSTEMS - ADULT Constitutional: reports: see HPI. denies: chills, fever, fatique, night sweats , weight gain, weight loss Eyes: reports: no symptoms reported Ears, Nose, Mouth & Throat: reports: no symptoms reported Cardiovascular: reports: no symptoms reported Respiratory: reports: no symptoms reported Gastrointestinal: reports: no symptoms reported Genitourinary: reports: no symptoms reported Musculoskeletal: reports: no symptoms reported Integumentary: reports: no symptoms reported Neurological: reports: no symptoms reported Psychiatric: reports: no symptoms reported Endocrine: reports: no symptoms reported Hematologic/Lymphatic: reports: no symptoms reported Allergic/Immunologic: reports: no symptoms reported All Other Systems: Reviewed and Negative Past History - Adult - PAST MEDICAL HISTORY-ADULT Review of Records: reports: Nursing Assessment Review, Medications Reviewed Cardiovascular: reports: HTN Genitourinary: reports: ESRD Endocrine/Immune: reports: Diabetes Physical Exam-General - PHYSICAL EXAM-ADULT Initial Vital Signs Reviewed: Yes - CONSTITUTIONAL General Appearance: appears well, alert, no apparent distress, obtunded - EYES Eyes: PERRL/EOMI, pink conjunctivae - NECK Neck: non-tender, full range of motion, supple, normal inspection. negative: C- spine tenderness, limited range of motion, lymphadenopathy - RESPIRATORY Respiratory: chest non-tender, lungs clear, normal breath sounds, no pleuratic chest pain, no respiratory distress, no accessory muscle use. negative: respiratory distress, decreased breath sounds, accessory muscle use, wheezing - CARDIOVASCULAR Cardiovascular: normal peripheral pulses, regular rate, rhythm, other (HTN (194/ 104)). negative: bradycardia, tachycardia, irregularly irregular - GASTROINTESTINAL (ABDOMEN) Abdominal Exam: normal bowel sounds, non tender, soft, no organomegaly, no pulsatile mass. 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 negative: deformity, erythema, inflammation, swelling, tenderness - SKIN Integumentary: normal color, normal turgor, warm/dry - PSYCHIATRIC Psych/Mental Status: normal thought content, normal thought process, oriented x 3, other (obtunded). negative: normal mood/affect Progress - PLAN OF CARE/RESULTS Progress/Plan/Lab Results: Orders Category Date Time Status BMP [BASIC METABOLIC PANEL] [CHEM] Stat Lab 11/15/16 19:34 Uncollected CBC WITH ELECTRONIC DIFF [HEME] Stat Lab 11/15/16 19:34 Uncollected Result Diagrams: 11/16/16 07:03 11/16/16 07:03 - CONSULTS/PCP/HOSPITALIST Notification #1 *Consult/PCP/Hospitalist*: Dr. Alberts (Hospitalist) Time Discussed: 22:25 (admit) Departure - Departure Date of Disposition Decision: 11/15/16 Time of Disposition Decision: 21:00 DIAGNOSIS: Renal failure (ARF), acute on chronic Qualifiers: Acute renal failure type: unspecified Chronic kidney disease stage: stage 5, not on chronic dialysis Qualified Code(s): N17.9 - Acute kidney failure, unspecified; N18.5 - Chronic kidney disease, stage 5 Disposition: ADMITTED INPATIENT 09 Certified Medical Emergency: Emergent Condition: Stable - Critical Care Note This patient required my direct & personal management of CC.: No Attestation - Physician/ ERNESTINE Attestation Patient care was provided by Advanced Practice Provider:: No The physician spent face to face time with patient:: Yes Advanced Practice Provider documentation review:: Supervising physician onsite and consulted in the evaluation and care of this patient. The physician did have a face to face encounter with the patient. This chart was documented by the indicated scribe, (Farzad Noyola Scribe) and accurately reflects the services I performed and decisions made by me, Perry Duran MD, as attested by the provider's signature.
== END 2016-11-16 17:41 ==
LOC: ED 18:55 → 3N 11-16 00:24 → SUATTDRO 11-16 00:24 → 3N 11-16 00:32
PROVIDERS: ATTEND Internal Medicine

== ENCOUNTER 2016-11-26 08:35 | Inpatient (IN) ==
[2016-11-26] MEDS: LR 1,000 ML IV SCH ×2 (09:30→20:19)
[2016-11-26] MEDS ORDERED: ZOFRAN IV PRN (09:55)
[2016-11-26] MEDS ORDERED: KEFZOL 1 GM in NS 50 ML IV ONE (10:00)
--- NOTE | 2016-11-26 10:20 | Diag Imaging Result Doc PS360 ---
CHEST-PORTABLE - 11/26/2016 INDICATION: preop TECHNIQUE: COMPARISON: 09/19/2016 FINDINGS: There has been significant enlargement of the heart shadow since the prior exam. Lung volumes are much lower now severely low. There is some nonspecific atelectasis at the right lung base associated with some right hemidiaphragm elevation. IMPRESSION: Significant enlargement of the heart shadow since prior. This could be either cardiomegaly or a pericardial effusion. Electronically signed by Addy Glass 11/26/2016 10:18 AM
--- NOTE | 2016-11-26 10:33 | CONSULTATION ---
DATE OF CONSULTATION: 11/26/2016 HISTORY OF PRESENT ILLNESS: A 46-year-old. He is here I think for right fkugs-zig-nwqm amputation. This is a 46-year-old with a history of end-stage renal disease on hemodialysis. He is a very poor historian in the past. By note during the interview he is on dialysis. He has 2 fistulas; 1 in the right arm and 1 on the left. I believe the left one is no longer functional, and I think they are using the right side by his report. He has a history of CVA. He has a history of gangrenous right pointer finger that was amputated, history of hypertension, history of hyperlipidemia, history of coronary artery disease, history of peripheral vascular disease. He had a left wotst-wnj-rrht amputation, bilateral AV fistulas, status post circumcision, amputation of the right fourth digit. FAMILY HISTORY: Noncontributory by previous reports. SOCIAL HISTORY: Lives with his mom; I think he lives with his sister as well. Denies alcohol or tobacco. Reportedly used marijuana in the past. ALLERGIES: No known drug allergies. REVIEW OF SYSTEMS: General: Does not report any weight gain or loss. No fever or chills. No respiratory difficulty. No chest pain. Cardiovascular: No new cardiovascular symptoms. GI/: No gross hematuria, dysuria. PHYSICAL EXAMINATION: Vital Signs: Temp 99.0 degrees, pulse 80, respirations 15, blood pressure 134/74. HEENT: CVP less than 6 cm. Lungs: Clear in all lung maravilla. Cardiovascular exam: Regular rhythm and rate without murmur or S3. Abdomen: Soft. Skin: Warm and dry. O2 saturations 94%. Weight was 133 pounds. Status post left vkmpg-hsq-ztrg amputation. Has a bandage over his right anterior knee for superficial ulcer that is healing well. Right foot is bandaged. REVIEW OF HIS HOME MEDICATION: 1. He is on Lipitor 10 mg at bedtime. 2. Norvasc 5 mg a day. 3. Heraclio 1 packet b.i.d. 4. PhosLo 1334 mg p.o. t.i.d. 5. Folic acid 1 mg daily. 6. Hydrocodone 7.5 mg 1-2 q. 6 hours. 7. [place] 5 q. 6 hours p.r.n. 8. Insulin lispro 5 units subcutaneous as directed p.r.n. 9. Remeron 15 mg p.o. at bedtime. ASSESSMENT AND PLAN: 1. Right diabetic foot ulcer with ischemia, peripheral vascular disease. I think the plan is for a right qmxrz-jhn-podv amputation per Dr. Tang. 2. History of cerebrovascular accident in the past, aware. 3. End-stage renal disease on hemodialysis. 4. He has had ischemic ulcers on his right hand and amputations; also left nejwg-alm-bxcn amputation on the left lower extremity. 5. History of coronary artery disease. 6. Hyperlipidemia. 7. Hypertension. NOTE: We will probably need IV access subclavian or internal jugular. We will discuss this with Dr. Tang and Dr. Dupree. Will need to continue his dialysis. We will check some baseline lab. Follow his blood sugars as well. Will check another set of blood cultures. cc: Brandon Pro MD
[2016-11-26 10:44] LABS: MANUAL DIFF NEEDED? NO
[2016-11-26 10:49] LABS: BASO% 0.4 % (0.0-0.8); EOS# 0.31 X1000 (0.0-0.7); EOS% 4.6 % (0.0-10.0); HEMATOCRIT 24.9 % (42.0-52.0); HEMOGLOBIN 7.7 g/dL (14.0-18.0); LYMPH# 1.47 X1000 (1.2-3.4); LYMPH% 21.8 % (20.5-51.1); MCH 27.8 PG (27-31); MCHC 30.9 g/dL (33-37); MCV 89.9 FL (81-99); MONO# 0.71 X1000 (0.11-0.59); MONO% 10.5 % (1.7-9.3); NEUT% 62.7 % (42.2-75.2); PLT 162 X1000 (130-400); RBC 2.77 XMIL (4.7-6.1)
--- NOTE | 2016-11-26 10:51 | EKG Report ---
Test Performed on : 11/26/2016 10:09:01 AM Test Reason : chest pain Blood Pressure : / mmHG Vent. Rate : 084 BPM Atrial Rate : 084 BPM P-R Int : 144 ms QRS Dur : 092 ms QT Int : 392 ms P-R-T Axes : 063 -05 149 degrees QTc Int : 463 ms Normal sinus rhythm. Left ventricular hypertrophy with repolarization abnormality Abnormal ECG When compared with ECG of 02-OCT-2016 19:15, Vent. rate has increased BY 30 BPM Borderline criteria for Inferior infarct are no longer present T wave inversion now evident in Lateral leads QT has lengthened Confirmed by Garrett Valdivia DO ([id number]) on 11/26/2016 6:20:33 PM
[2016-11-26 10:54] LABS: INR 1.05; PROTIME 11.1 Seconds (9.2-11.7)
[2016-11-26 11:04] LABS: IRON SATURATION 19 %; TIBC 114 ug/dL; TOTAL IRON 22 ug/dL (53-167); UNBOUND IRON 92 ug/dL (112-346)
[2016-11-26 11:05] LABS: ALBUMIN 3.2 g/dL (3.5-5.0); MAGNESIUM 2.1 mg/dL (1.5-2.7); POTASSIUM 4.7 mmol/L (3.5-5.1); TOTAL BILIRUBIN 0.4 mg/dL (0.20-1.00); TOTAL PROTEIN 7.3 g/dL (6.3-8.3)
[2016-11-26 11:38] LABS: FERRITIN 1458 ng/mL (30-400)
--- NOTE | 2016-11-26 14:35 | CONSULTATION ---
DATE OF CONSULTATION: 11/26/2016 REASON FOR CONSULTATION: Hemodialysis. HISTORY OF PRESENT ILLNESS: Mr. Vasquez is a 46-year-old man who is not typically followed by me. He has end-stage kidney disease, secondary to diabetes. He has severe peripheral vascular disease. He has had a BKA on one leg, and has a large dry ulcer on the other foot and is admitted for BKA. His most recent acute illness was in August, when he was admitted to the hospital with pneumonia. He is a very poor historian. He does admit that he is in the hospital to have his foot amputated. He his only other complaint is that he has had a bowel movement and needs help from the nursing staff. No shortness of breath, chest discomfort. No nausea or vomiting. PAST MEDICAL HISTORY: As above. He also has a history of CVA, and he has ischemic ulceration on the right first finger. He also has hypertension and diabetes, as above. HOME MEDICATIONS: Include Lipitor, amlodipine, Heraclio, PhosLo, folate, hydrocodone, [place], insulin, Remeron. ALLERGIES: None. SOCIAL HISTORY: He is in [place] to stay with his mother, who is helping with his personal care. FAMILY HISTORY: Otherwise noncontributory. REVIEW OF SYSTEMS: Otherwise noncontributory. PHYSICAL EXAMINATION: Vital Signs: Blood pressure 140/70, heart rate 76, respirations 13, temperature 99.1 degrees. General: He is in no acute distress. Skin: Warm and dry, except for ulceration as above. HEENT: Conjunctivae are pale. Pupils are equal. Oropharynx is clear. Neck: Neck veins are not appreciated. Trachea is midline. Heart: Regular with a gallop and a murmur. Lungs: Equal breath sounds. No crackles. Abdomen: Soft, nontender. Bowel sounds present. Extremities: No edema, clubbing, or cyanosis. IMPRESSION: 1. End-stage kidney disease. We will continue his routine Friday, Friday, Friday dialysis prescription while he is in inpatient. 2. Electrolytes are in target. 3. Acid-base is in target. 4. Anemia is below target. Iron studies find his ferritin 1458, which limits our use of IV iron. I will just continue erythropoietin. He may need to have a transfusion. We will prepare for that for tomorrow. Blood pressure is in target. cc: MD Brandon Randle MD
[2016-11-26] MEDS ORDERED: AMIDATE ONE (15:44)
[2016-11-26] MEDS ORDERED: XYLOCAINE-MPF 2% ONE (15:44)
[2016-11-26] MEDS ORDERED: KEFZOL 1 GM/D5W 1 GM/50 ML IVPB ONE (15:45)
[2016-11-26] MEDS: DILAUDID ONE ×4 (17:02→18:04)
--- NOTE | 2016-11-26 17:07 | OPERATIVE NOTE ---
PROCEDURE DATE: 11/26/2016 PREOPERATIVE DIAGNOSIS: Gangrene of the right lower extremity. POSTOPERATIVE DIAGNOSIS: Gangrene of the right lower extremity. PROCEDURES: Above the knee amputation of the right lower extremity. SURGEON: Solitario Tang MD. DESK ASSISTANT: None. ANESTHESIA: General endotracheal. INTRAOPERATIVE FINDINGS: As above. COMPLICATIONS: None at time of dictation. EBL: 500 mL. SPECIMENS REMOVED: Leg. BRIEF HISTORY: Patient is a 46-year-old male with multiple medical comorbidities presenting with essentially gangrene of the right foot. He had maggots in his toe. He had multiple wounds on his knee that prevented a mxpqt-kzs-sbpp amputation. It is felt the patient would benefit from above the knee amputation. He also peripheral vascular disease. He had this removed. The risks, benefits, and alternatives for the procedure were discussed. All questions answered. DESCRIPTION OF PROCEDURE: After informed consent was obtained patient was brought to the operative theatre, transferred to the operating table, placed in supine position. General endotracheal anesthesia was then performed without complication. A formal time-out was then performed confirming patient, date, procedure. All were in agreement. At that time, attention was given to the leg. A standard fishmouth incision was made above the knee after it was prepped and draped in sterile fashion. We carried down all the way down to the muscle to the bone. We used the Gigli saw to transect the bone. We were able to rasp and file it down to make it a smooth edge. We isolated the vessels and ligated them. Once we had gone through the whole leg in its entirety, the musculature, we closed the defect in layers using 0 Vicryl and 3-0 Vicryl and then echo for the skin. The patient tolerated procedure well. He was transferred to the recovery room in the postoperative period. cc: MD Brandon Valentine MD
[2016-11-26] MEDS: MORPHINE IV PRN ×2 (20:19→23:10)
[2016-11-27] MEDS: MORPHINE IV PRN ×5 (01:23→18:53)
[2016-11-27] MEDS: TYLENOL PO PRN ×2 (04:33→16:32)
[2016-11-27] MEDS: LR 1,000 ML IV SCH ×3 (04:47→22:32)
[2016-11-27 05:07] LABS: MANUAL DIFF NEEDED? NO
[2016-11-27 05:25] LABS: BASO% 0.4 % (0.0-0.8); EOS% 4.8 % (0.0-10.0); HEMATOCRIT 24.4 % (42.0-52.0); HEMOGLOBIN 7.7 g/dL (14.0-18.0); IMM GRAN# 0.02 X1000 (0.0-0.04); IMM GRAN% 0.2 % (0.0-0.5); LYMPH# 1.11 X1000 (1.2-3.4); LYMPH% 13.2 % (20.5-51.1); MCH 27.7 PG (27-31); MCHC 31.6 g/dL (33-37); MCV 87.8 FL (81-99); MONO% 11.9 % (1.7-9.3); MPV 11.5 FL (7.4-10.4); NEUT% 69.5 % (42.2-75.2); PLT 147 X1000 (130-400); RBC 2.78 XMIL (4.7-6.1)
[2016-11-27 05:27] LABS: INR 1.07; PROTIME 11.3 Seconds (9.2-11.7)
[2016-11-27 05:38] LABS: ALBUMIN 3.3 g/dL (3.5-5.0); POTASSIUM 5.1 mmol/L (3.5-5.1); TOTAL BILIRUBIN 0.38 mg/dL (0.20-1.00); TOTAL PROTEIN 7.1 g/dL (6.3-8.3)
--- NOTE | 2016-11-27 06:35 | EKG Report ---
Test Performed on : 11/27/2016 06:03:09 AM Test Reason : chest pain Blood Pressure : / mmHG Vent. Rate : 101 BPM Atrial Rate : 101 BPM P-R Int : 142 ms QRS Dur : 082 ms QT Int : 352 ms P-R-T Axes : 057 026 158 degrees QTc Int : 456 ms Suspect unspecified pacemaker failure Sinus tachycardia. Voltage criteria for left ventricular hypertrophy Nonspecific ST and T wave abnormality Abnormal ECG When compared with ECG of 26-NOV-2016 10:09, T wave inversion less evident in high-lateral leads (1 and AVL) T wave inversion no longer evident in far-lateral leads (V5-V6) Confirmed by Garrett Valdivia DO ([id number]) on 11/27/2016 5:59:34 PM
[2016-11-27] MEDS ORDERED: APRESOLINE IV PRN (06:41)
--- NOTE | 2016-11-27 06:42 | PROGRESS NOTE ---
DATE: 11/27/2016 SUBJECTIVE: Patient resting comfortably. No major issues reported by the nursing staff. OBJECTIVE: Vital Signs: The patient has a current temperature of 100.4 degrees. His pulse was mildly tachycardic at 102. The remainder of his vital signs appear to be stable, although his blood pressure is 220/47, O2 saturation 100% on room air. General Examination: No acute distress. Cardiovascular: Mildly tachycardic. Lungs: Grossly clear. Extremities: Amputation site healing well. ASSESSMENT/PLAN: A 46-year-old, male status post right wczmf-koh-zogj amputation. 1. Multiple medical comorbidities, currently being managed by the hospitalist service. His blood pressure is 220/47 so we will ask them to re-evaluate potential new medications. His creatinine is elevated at 11. He has been seen by Dr. Dupree. He likely needs dialysis today. His blood pressure does have a wide pulse pressure so this may be related to potentially anemia but we will need to monitor and I will defer to the hospitalist service. 2. Status post amputation. At this time, we will get a stump protector placed and monitor him closely. cc: MD Brandon Valentine MD
[2016-11-27] MEDS ORDERED: HEPARIN IV PRN (07:07)
[2016-11-27] MEDS ORDERED: TIGHT: 0.2 ML/HR MISC PRN (07:07)
[2016-11-27] MEDS ORDERED: NS 2,000 ML MISC PRN (07:07)
[2016-11-27] MEDS: PERIDEX MT SCH ×3 (07:45→22:33)
[2016-11-27] MEDS: EPOGEN SUBQ SCH (08:17)
[2016-11-27] MEDS: PRILOSEC PO SCH (08:17)
--- NOTE | 2016-11-27 08:50 | PROGRESS NOTE ---
DATE: 11/27/2016 SUBJECTIVE: He was still in quite a bit of pain this morning status post a right lower extremity amputation. This was done by Dr. Tang. He had above the knee amputation. PHYSICAL EXAMINATION: Vital Signs: Today, he remains afebrile. Temperature 99.3 degrees, pulse 94, respirations 16, blood pressure 213/74. HEENT: Pupils are equal and round. Lungs: Clear in all lung maravilla. Cardiovascular Examination: Regular rhythm and rate without murmur or S3. Is and Os: Urine output is over 1 L. LAB: From this morning, white count 8420, hematocrit 24, platelet count 147,000. Creatinine 11, sodium 143, potassium 5.1, chloride 99, bicarb 24. ASSESSMENT AND PLAN: 1. Multiple medical comorbidities. The patient is status post right urlyg-sfy-uqqk amputation. Blood pressure has been running a little high so we will continue to follow and make some adjustments. 2. End-stage renal disease, on hemodialysis. 3. Peripheral vascular disease. 4. Diabetes mellitus type 2. Continue to follow sugars. 5. Nutrition. Encourage oral intake. 6. I have reviewed orders. I do not know if I see any changes. He was given a dose of cefazolin around surgery. No antibiotics going right now. He is on lactated Ringer at 120 mL an hour. He had an elevation of his CPK and we will check it again. Electrolytes look good. cc: Brandon Pro MD
[2016-11-27] MEDS ORDERED: DILAUDID ONE (09:21)
[2016-11-27] MEDS: DILAUDID IV PRN ×2 (09:23→16:32)
[2016-11-27] MEDS ORDERED: HEPARIN ONE (10:35)
[2016-11-27] MEDS ORDERED: NS 2,000 ML ONE (10:35)
[2016-11-27] MEDS ORDERED: MORPHINE ONE (11:40)
--- NOTE | 2016-11-27 13:41 | PROGRESS NOTE ---
DATE: 11/27/2016 SUBJECTIVE: He has pain in his leg postsurgery. No shortness of breath. OBJECTIVE: Vital Signs: Blood pressure 163/82, heart rate 102, respiration 18, afebrile. He is currently on dialysis. Skin: Warm and dry. Right leg AKA site is dressed. Heart: Regular with a gallop. Lungs: Have equal breath sounds. No crackles. Abdomen: Soft, nontender. Bowel sounds present. Extremities: Have no edema, clubbing, or cyanosis. LABORATORY DATA: Sodium 143, potassium 5.1, chloride 99, bicarbonate 24, BUN 57, creatinine 11.0, hemoglobin 7.7. IMPRESSION: 1. End-stage kidney disease. He is undergoing his routine hemodialysis. 2. Anemia. 1 unit packed red blood cells today. 3. Electrolytes/acid base. Acceptable. 4. Nutrition. Albumin 3.3 today. Observe carefully. May require IDPN. cc: MD Brandon Randle MD
[2016-11-27] MEDS: NORVASC PO SCH (14:04)
[2016-11-28] MEDS: LR 1,000 ML IV SCH (06:16)
[2016-11-28 06:55] LABS: AGAP 21; ALBUMIN 3.3 g/dL (3.5-5.0); ALKALINE PHOSPHATASE 78 U/L (32-122); BUN 31 mg/dL (8-22); CALCIUM 8.2 mg/dL (8.8-10.2); CHLORIDE 96 mmol/L (98-107); CK PROFILE 1363 U/L (24-204); COSMO 288; GOT 18 U/L (10-34); GPT < 5 U/L (10-44); MAGNESIUM 1.9 mg/dL (1.5-2.7); POTASSIUM 4.5 mmol/L (3.5-5.1); SODIUM 142 mmol/L (136-145); TCO2 25 mmol/L (25-35); TOTAL BILIRUBIN 0.42 mg/dL (0.20-1.00); TOTAL PROTEIN 7.3 g/dL (6.3-8.3)
--- NOTE | 2016-11-28 07:01 | PROGRESS NOTE ---
DATE: 11/28/2016 SUBJECTIVE: Patient doing okay. No major issues. OBJECTIVE: Vital Signs: Patient is currently afebrile. He does have a temperature max of 100.6. His vital signs appear to be stable. General Examination: No acute distress. Cardiovascular: Mildly tachycardic. Lungs: Grossly clear. Extremities: Amputation site with dressing in place. ASSESSMENT AND PLAN: A 46-year-old, male status post right ebhhd-lvs-oyff amputation. 1. Multiple medical comorbidities, currently being managed by the hospitalist service. Dr. Dupree is also involved. He is undergoing dialysis. 2. Status post amputation. At this time, we will continue to monitor. Hopefully take the wound dressing down in the next day or two. cc: MD Brandon Valentine MD
[2016-11-28 07:08] LABS: CK INDEX 0.3 (0.0-2.5); CK-MB 3.79 ng/mL (0.0-5.0)
--- NOTE | 2016-11-28 07:21 | Diag Imaging Result Doc PS360 ---
EXAM: CHEST-PORTABLE - 11/28/2016 HISTORY: p/o LE amputation. TECHNIQUE: Portable chest 0500 COMPARISON: 11/26/2016 FINDINGS: There is stable mild thyromegaly. There is persistent elevation right hemidiaphragm. There are subsegmental atelectasis and small pleural effusion at the right base. Remainder lungs appear clear. No pneumothorax. IMPRESSION: Mild atelectasis and small pleural effusion at right base. Electronically signed by Farhad Ayala 11/28/2016 7:19 AM
--- NOTE | 2016-11-28 09:13 | PROGRESS NOTE ---
DATE: 11/28/2016 SUBJECTIVE: Mr. Vasquez is more comfortable. Not eating. No appetite. Breathing comfortably. No chest pain. Just hurting in his right stump. OBJECTIVE: Vital Signs: Temperature 100.5 degrees, pulse of 95, respirations 16, blood pressure 169/53. Lungs: Clear in all lung maravilla. Cardiovascular: Regular rhythm and rate without murmur or S3. Abdomen: Soft. Skin: Warm and dry. URINE OUTPUT: Was over 2 L. LAB REVIEW: From the hematocrit 24, hemoglobin 7.7. Chemistries reviewed from today; sodium 142, potassium 4.5, chloride 96. BUN 31, creatinine 7.2. Chest x-ray from today mild atelectasis, small pleural effusion in the right base. Did have a little bit of temperature yesterday. ASSESSMENT AND PLAN: 1. Multiple medical comorbidities, status post right dzedw-voe-npzk amputation, peripheral vascular disease. 2. Little bit of fever. Chest x-ray suggested atelectasis, possible infiltrate. Make sure we cover with antibiotic to cover respiratory organisms. Encouraged deep breaths. 3. Nutrition: Encourage p.o. intake. 4. Diabetes mellitus type 2. Continue to follow sugars, pattern sliding scale. cc: Brandon Pro MD
[2016-11-28] MEDS: TYLENOL PO PRN (09:58)
[2016-11-28] MEDS: NORVASC PO SCH (09:59)
[2016-11-28] MEDS: PRILOSEC PO SCH (09:59)
[2016-11-28] MEDS: PERIDEX MT SCH ×2 (09:59→20:14)
[2016-11-28] MEDS: ROCEPHIN 1 GM in NS 50 ML IV SCH (10:03)
[2016-11-28] MEDS: MORPHINE IV PRN ×2 (11:35→20:13)
[2016-11-28] MEDS: DUONEB (A & A) INH SCH ×4 (12:25→22:50)
--- NOTE | 2016-11-28 16:19 | PROGRESS NOTE ---
DATE: 11/28/2016 SUBJECTIVE: Patient currently resting in bed asleep. He will rouse to verbal and tactile stimuli. He drifts off back to sleep. OBJECTIVE: Vital Signs: Temperature 100.2 degrees, pulse 92, respiratory rate 22, blood pressure 162/68. Intake is 2.3 L. Output 1.8 L. PHYSICAL EXAMINATION: General: This is a middle-aged gentleman resting in bed. He is in no acute distress. HEENT: Normocephalic, atraumatic. Oral mucosa moist. Dentition poor. Neck: Supple. Trachea midline. No JVD. Cardiovascular: Regular rate and rhythm. S4. Pulmonary: Equal excursion. He is clear bilaterally. Abdomen: Soft positive bowel sounds. : Not inspected. Minimal void with hemodialysis assist. Extremities: He has a bilateral BKA. The right is a new BKA, it still has an Kem dressing noted. There is no drainage. He is moving his upper extremities. Integumentary: Skin is warm and dry without rash or lesion. LAB DATA: WBC of 8.4, hemoglobin 7.7. Sodium 142, potassium 4.5, chloride 96, CO2 23, creatinine 7.2. ASSESSMENT AND PLAN: 1. End-stage renal disease management. The patient dialyzes on a Friday, Friday, Friday schedule. We will plan to dialyze him tomorrow. 2. Anemia. Check labs in the morning, transfuse if needed. 3. Nutrition. I do not have a new albumin. I will check that tomorrow. Again we are considering intradialytic parenteral nutrition on the patient. Dictated by HAILEE Storey for Mukesh Dupree MD Patient seen, data reviewed, discussed with Steven Palomo on 11/28/16. I agree with the above assessment and plan of care. cc: MD Brandon Randle MD MTDD
[2016-11-29] MEDS: DUONEB (A & A) INH SCH ×6 (03:16→23:05)
[2016-11-29] MEDS: TYLENOL PO PRN (05:09)
[2016-11-29] MEDS: LR 1,000 ML IV SCH ×4 (05:09→13:02)
[2016-11-29] MEDS ORDERED: TIGHT: 0.2 ML/HR MISC PRN (07:17)
[2016-11-29] MEDS ORDERED: NS 2,000 ML MISC PRN (07:17)
[2016-11-29] MEDS ORDERED: HEPARIN IV PRN (07:17)
--- NOTE | 2016-11-29 09:49 | PROGRESS NOTE ---
DATE: 11/29/2016 SUBJECTIVE: No major issues reported by the nursing staff. Patient seen to be resting okay. OBJECTIVE: Vital Signs: Patient is currently afebrile. His temperature max is 100.6. His vital signs appear to be stable. General: Resting comfortably. Cardiovascular: Mildly tachycardic. Lungs are grossly clear. Extremities: Amputation site with dressing in place. ASSESSMENT AND PLAN: A 46-year-old male status post right ukwtr-cwk-zist amputation. 1. Multiple medical comorbidities currently being managed by the hospitalist service. 2. Status post amputation at this time, we will continue to monitor. Will take down the dressing tomorrow. cc: MD Brandon Valentine MD
[2016-11-29 10:02] LABS: HEMATOCRIT 25.3 % (42.0-52.0); HEMOGLOBIN 7.9 g/dL (14.0-18.0); MCH 26.9 PG (27-31); MCHC 31.2 g/dL (33-37); MCV 86.1 FL (81-99); MPV 11.8 FL (7.4-10.4); RBC 2.94 XMIL (4.7-6.1)
[2016-11-29] MEDS ORDERED: DILAUDID ONE (10:03)
[2016-11-29] MEDS: DILAUDID IV PRN (10:08)
[2016-11-29] MEDS ORDERED: NS 2,000 ML ONE (10:40)
[2016-11-29] MEDS ORDERED: HEPARIN ONE (10:40)
[2016-11-29] MEDS: NORVASC PO SCH (11:41)
[2016-11-29] MEDS: PERIDEX MT SCH ×2 (11:42→21:14)
[2016-11-29] MEDS: PRILOSEC PO SCH (11:43)
--- NOTE | 2016-11-29 12:40 | PROGRESS NOTE ---
DATE: 11/29/2016 SUBJECTIVE: He is still having pain in the leg. Otherwise, no shortness of breath, nausea or vomiting. OBJECTIVE: Vital Signs: Blood pressure 180/47, heart rate 105, respirations 20, afebrile. T-max 100.6 degrees. Intake 1.8 L, output 0. General: No acute distress except for pain. Skin: Warm and dry. HEENT: Conjunctivae are pink. Neck: Neck veins not distended. Heart: Regular with an S4 gallop. Lungs: Have equal breath sounds. No crackles. Abdomen: Soft, nontender. Normal bowel sounds. Extremities: Have no edema, clubbing, or cyanosis. LABORATORY DATA: None today. IMPRESSION: 1. End-stage kidney disease. He will have his routine hemodialysis today. 2. Volume status, in target. 3. Blood pressure, acceptable. 4. Anemia, below target. Continue erythropoietin. He had 2 units of blood on the and . Will administer 1 more unit today. cc: MD Brandon Randle MD
[2016-11-29] MEDS: MORPHINE IV PRN ×3 (13:38→21:14)
[2016-11-29] MEDS: ROCEPHIN 1 GM in NS 50 ML IV SCH ×2 (13:39→16:36)
--- NOTE | 2016-11-29 14:27 | PROGRESS NOTE ---
DATE: 11/29/2016 I think he is a little more comfortable. Still has a good deal of pain in his stump. Remains afebrile. Temp max is 100.6 degrees. PHYSICAL EXAMINATION: Vital Signs: Temperature 98.4 degrees, pulse 101, respirations 20, blood pressure 140/76. Lungs: Clear in all lung mar[place]illa. Cardiovascular: Regular rhythm and rate without murmur or S3. Abdomen: Soft. Skin: Warm and dry. His plan is for dialysis today. ASSESSMENT AND PLAN: 1. End-stage renal disease. Continue hemodialysis. Volume status, electrolytes look good. Acid- base status looked good. 2. Status post right ucjvi-lgu-hkcw amputation. Seems to be healing well. Still good deal of discomfort. 3. Peripheral vascular disease. 4. Anemia. Aware. Continue to follow. 5. Blood sugar is under good control. 6. Diabetes mellitus type 2. Review of his orders, I do not see any changes at this point. He is on amlodipine 5 mg a day. Apresoline p.r.n. 10 mg q.6 hours. Dilaudid 1 mg q.4 hours p.r.n. He is on lactated Ringer's 120 mL every hour and he is getting ceftriaxone 1 g every 24 hours. We did that just for a little bit of fever, questionable x-ray. Will repeat another chest x-ray. He had mild atelectasis, small effusion on the right. I will repeat a chest x-ray again in the morning. Check another Chem 12, magnesium, CBC. cc: Brandon Pro MD
[2016-11-29] MEDS: EPOGEN SUBQ SCH (16:35)
[2016-11-30] MEDS: MORPHINE IV PRN ×2 (01:39→05:30)
[2016-11-30] MEDS: DUONEB (A & A) INH SCH ×6 (03:00→23:12)
[2016-11-30 05:47] LABS: MANUAL DIFF NEEDED? NO
[2016-11-30 05:50] LABS: BASO% 0.2 % (0.0-0.8); EOS# 0.53 X1000 (0.0-0.7); EOS% 5.4 % (0.0-10.0); HEMOGLOBIN 8.2 g/dL (14.0-18.0); IMM GRAN# 0.02 X1000 (0.0-0.04); IMM GRAN% 0.2 % (0.0-0.5); LYMPH# 1.46 X1000 (1.2-3.4); LYMPH% 14.8 % (20.5-51.1); MCH 27.6 PG (27-31); MCHC 31.5 g/dL (33-37); MCV 87.5 FL (81-99); MONO% 12.2 % (1.7-9.3); MPV 11.5 FL (7.4-10.4); NEUT% 67.2 % (42.2-75.2); PLT 172 X1000 (130-400); RBC 2.97 XMIL (4.7-6.1)
[2016-11-30 06:28] LABS: AGAP 19; ALBUMIN 3.1 g/dL (3.5-5.0); ALKALINE PHOSPHATASE 77 U/L (32-122); BUN 20 mg/dL (8-22); CALCIUM 8.1 mg/dL (8.8-10.2); CHLORIDE 96 mmol/L (98-107); COSMO 287; GOT 18 U/L (10-34); GPT < 5 U/L (10-44); MAGNESIUM 1.8 mg/dL (1.5-2.7); POTASSIUM 4.1 mmol/L (3.5-5.1); SODIUM 143 mmol/L (136-145); TCO2 28 mmol/L (25-35); TOTAL PROTEIN 7.3 g/dL (6.3-8.3)
[2016-11-30] MEDS: LR 1,000 ML IV SCH (07:39)
--- NOTE | 2016-11-30 08:28 | Diag Imaging Result Doc PS360 ---
EXAM: CHEST-PORTABLE HISTORY: pneumonia TECHNIQUE: AP portable upright at 0800 COMMENT: The right hemidiaphragm is elevated as it was on 11/28/2016. There is some subsegmental atelectasis in the right base. The latter is slightly worse than on 11/26/2016. IMPRESSION: Right lower lobe atelectasis. Electronically signed by Diogo Davidson 11/30/2016 8:26 AM
[2016-11-30] MEDS: PRILOSEC PO SCH (10:03)
[2016-11-30] MEDS: PERIDEX MT SCH ×3 (10:03→22:03)
[2016-11-30] MEDS: NORVASC PO SCH (10:03)
--- NOTE | 2016-11-30 10:45 | PROGRESS NOTE ---
DATE: 11/30/2016 SUBJECTIVE: Mr. Vasquez is awake, appears to be comfortable. His dressing involving his right above- the-knee amputation stump is dry and will leave it intact. He has eaten about 50% of his breakfast. OBJECTIVE: Vital signs: His heart rate is 87, blood pressure 168/75, O2 saturation 94%. He is afebrile. He has received Rocephin. He is on intermittent dialysis. LABORATORY DATA: His white blood cell count is normal. Hematocrit is 26%. His BUN and creatinine are 20 and 5.6. PLAN: Will continue to encourage p.o. intake and wound care. A chest x-ray this morning suggested right lower lobe atelectasis. cc: MD Brandon Guzmán MD
--- NOTE | 2016-11-30 11:53 | PROGRESS NOTE ---
DATE: 11/30/2016 SUBJECTIVE: Mr. Vasquez was sleeping comfortably, breathing comfortably. He was able to arouse without any trouble. He has not been eating much and has been sleeping most of the day. ' OBJECTIVE: Vital Signs: Temperature 98.9 degrees, pulse 87, respirations 20, blood pressure 168/75. Lungs are clear in all lung maravilla. Cardiovascular: Regular rhythm and rate without murmur or S3. Abdomen is soft. Skin is warm and dry. Good urine output. Blood sugar is 126, 93, 79. ASSESSMENT AND PLAN: 1. This is postop day #3, and he had a right advdm-yhp-fdpl amputation. We will cut down on his pain medicine. Family concerned he is not eating much. 2. End-stage renal disease. Continue hemodialysis. Volume status, electrolytes and acid base look good. 3. Peripheral vascular disease. 4. Anemia which is stable. 5. Diabetes mellitus, type 2. Sugar is under good control. Looking at his orders, I will see if we can let him wake up a little bit. Continue ceftriaxone 1 g q.24 hours. He also gets morphine p.r.n. I think I suspect there is an element of depression postop hematocrit 26, hemoglobin 8. Chemistries looked good. Creatinine was 5.6 so hemodialysis as needed. Blood sugars appear well controlled. cc: Brandon Pro MD
[2016-11-30] MEDS: REMERON PO SCH ×2 (19:52→22:03)
[2016-11-30] MEDS: ROCEPHIN 1 GM in NS 50 ML IV SCH (19:56)
[2016-12-01] MEDS: DUONEB (A & A) INH SCH ×6 (03:00→23:24)
[2016-12-01] MEDS: LR 1,000 ML IV SCH (06:20)
[2016-12-01] MEDS: PERCOCET-5 PO PRN (07:21)
--- NOTE | 2016-12-01 08:23 | PROGRESS NOTE ---
DATE: 12/01/2016 He seemed to have better sleep last night, did not arouse this morning. He was breathing comfortably. EXAMINATION: Vital Signs: Temp 98.6 degrees, pulse 100, respirations 16, blood pressure 126/69. Lungs: Clear in all lung maravilla. Cardiovascular: Regular rhythm and rate without murmur or S3. Abdomen: Soft. Skin: Warm and dry. LABORATORY STUDIES: Blood sugar 93, 134, 89. ASSESSMENT/PLAN: 1. Postop day four, above the knee amputation. His IV came out so switched him to p.o. pain medicine. Also started him on Remeron last night. 2. End-stage renal disease. Continue hemodialysis as needed. 3. Peripheral vascular disease, aware. 4. Anemia, stable. 5. Diabetes mellitus type 2. Sugars appear under good control. 6. Depression. Started some Remeron. Noted sugars are running a little bit on the low side, not eating much. cc: Brandon Pro MD
[2016-12-01] MEDS: NORVASC PO SCH (09:09)
[2016-12-01] MEDS: PRILOSEC PO SCH (09:09)
[2016-12-01] MEDS: PERIDEX MT SCH ×2 (09:10→22:54)
--- NOTE | 2016-12-01 12:27 | PROGRESS NOTE ---
DATE: 12/01/2016 Mr. Vasquez is status post azhdc-rnz-hhjx amputation per Dr. Tang. The wound is intact and is dry. He is up on the bedside commode this morning. I did speak with his sister. They want to try to take him home from the hospital. They are interested in home physical therapy, and they also need home equipment for him. Overall I think he is doing well status post right mglbs-evo-kqmi amputation. cc: MD Brandon Guzmán MD
[2016-12-01] MEDS: REMERON PO SCH (22:54)
[2016-12-02] MEDS: DUONEB (A & A) INH SCH ×6 (03:20→23:12)
[2016-12-02] MEDS ORDERED: HEPARIN IV PRN (08:19)
[2016-12-02] MEDS ORDERED: TIGHT: 0.2 ML/HR MISC PRN (08:19)
[2016-12-02] MEDS ORDERED: NS 2,000 ML MISC PRN (08:19)
[2016-12-02] MEDS: PRILOSEC PO SCH (08:24)
[2016-12-02] MEDS: PERIDEX MT SCH ×2 (08:24→21:30)
[2016-12-02] MEDS: NORVASC PO SCH (08:24)
[2016-12-02] MEDS: EPOGEN SUBQ SCH (08:40)
[2016-12-02] MEDS ORDERED: HEPARIN ONE (08:45)
[2016-12-02] MEDS ORDERED: NS 2,000 ML ONE (08:45)
[2016-12-02] MEDS ORDERED: DILAUDID ONE (10:40)
[2016-12-02] MEDS: DILAUDID IV PRN (10:45)
--- NOTE | 2016-12-02 12:26 | PROGRESS NOTE ---
DATE: 12/02/2016 SUBJECTIVE: He was seen in dialysis this morning. No real complaints. OBJECTIVE: Vital Signs: No fevers. No tachycardia. Blood pressure 159/40. General: He is alert, in no acute distress. Extremities: His right above-knee amputation dressing is in place and is clean and dry. I do not see any cellulitis extending up his leg above his dressing. He is in dialysis, currently being dialyzed. REVIEW OF LABORATORIES: Nothing new today. ASSESSMENT AND PLAN: A 46-year-old male, status post right above-knee amputation by Dr. Tang. Continue local wound care and medical management, and we will make disposition plans tomorrow if Dr. Tang returns. cc: MD Brandon Kennedy MD
--- NOTE | 2016-12-02 13:44 | PROGRESS NOTE ---
DATE: 12/02/2016 SUBJECTIVE: Mr. Vasquez doing a little better, had pretty good sleep resting comfortably. He is to get dialysis today. EXAM: Vital Signs: Temperature 98.2 degrees, pulse 86, respirations 13, blood pressure 159/40. Lungs: Clear in all lung maravilla. Cardiovascular: Regular rate without murmur or S3. Abdomen: Soft. Skin: Warm and dry. Urine output 1900 mL. LAB: Review from 2nd hematocrit stable at 26, hemoglobin 8.2, chemistries blood sugar 85,96, 112. ASSESSMENT AND PLAN: 1. 46-year-old status post ebflg-wwt-tosw amputation Dr. Tang, continues local wound care, medical management doing well. Disposition probably pursue rehab. 2. Depression reasonable, tried Remeron see if that will help. 3. End-stage renal disease. 4. Peripheral vascular disease. 5. Anemia stable. 6. Diabetes mellitus type 2. Sugars under good control. I think he is making good progress. He is depressed. Will see if increased activity and change in his pain medicines will help. Reviewed his orders, do not see any change. cc: Brandon Pro MD
[2016-12-02] MEDS ORDERED: DULCOLAX PR ONE (14:28)
[2016-12-02] MEDS: PERCOCET-5 PO PRN ×2 (14:46→21:30)
--- NOTE | 2016-12-02 15:36 | PROGRESS NOTE ---
DATE: 12/02/2016 SUBJECTIVE: He is resting. He denies pain, nausea, vomiting, shortness of breath. OBJECTIVE: Vital Signs: Blood pressure 132/68, heart rate 100, respirations 17, temperature 99.2 degrees. General: He is in no acute distress. Skin: Warm and dry. HEENT: Conjunctivae are pink. Neck: The neck veins are not visible. Heart: Regular with an S4. Lungs: Have equal breath sounds. No crackles or wheezes. Abdomen: Soft, nontender. Bowel sounds present. Extremities: Have no edema. LABORATORY DATA: None today. IMPRESSION: 1. End-stage kidney disease. He had his routine hemodialysis treatment today. He had 1.9 liters of ultrafiltration volume. We used a 2-potassium bath and a standard 32 bicarbonate. 2. Anemia. Hemoglobin has been stable since surgery, and he is receiving erythropoietin. cc: MD Brandon Randle MD
[2016-12-02] MEDS: REMERON PO SCH (21:30)
[2016-12-03] MEDS: DUONEB (A & A) INH SCH ×6 (03:27→22:44)
[2016-12-03] MEDS: PERCOCET-5 PO PRN ×3 (06:20→22:20)
--- NOTE | 2016-12-03 06:21 | PROGRESS NOTE ---
DATE: 12/03/2016 SUBJECTIVE: Doing okay, no major issues. OBJECTIVE: Vital Signs: Patient is currently afebrile. His vital signs have been stable. General: No acute distress. Resting comfortably. Cardiovascular: Regular rate and rhythm. Lungs: Grossly clear. Extremities: The amputation site dressing removed, healing well. ASSESSMENT AND PLAN: A 46-year-old male status post right hpgrf-djn-dzmt amputation. 1. Multiple medical comorbidities currently being managed by the hospitalist service. 2. Status post amputation. At this time, he is doing well from a clinical point of view. He can likely be discharged once all hospitalists are in agreement. Hopefully we can make that happen here soon. cc: MD Brandon Valentine MD
[2016-12-03] MEDS: PRILOSEC PO SCH (08:28)
[2016-12-03] MEDS: NORVASC PO SCH (08:28)
[2016-12-03 08:29] LABS: MANUAL DIFF NEEDED? NO
[2016-12-03] MEDS: PERIDEX MT SCH (08:29)
[2016-12-03 08:37] LABS: BASO% 0.4 % (0.0-0.8); EOS# 0.53 X1000 (0.0-0.7); EOS% 7.1 % (0.0-10.0); HEMATOCRIT 27.5 % (42.0-52.0); HEMOGLOBIN 8.3 g/dL (14.0-18.0); IMM GRAN# 0.02 X1000 (0.0-0.04); IMM GRAN% 0.3 % (0.0-0.5); LYMPH# 1.19 X1000 (1.2-3.4); LYMPH% 15.9 % (20.5-51.1); MCH 26.9 PG (27-31); MCHC 30.2 g/dL (33-37); MONO# 0.83 X1000 (0.11-0.59); MONO% 11.1 % (1.7-9.3); MPV 10.9 FL (7.4-10.4); NEUT% 65.2 % (42.2-75.2); PLT 257 X1000 (130-400); RBC 3.09 XMIL (4.7-6.1)
[2016-12-03 08:53] LABS: CALCIUM 8.4 mg/dL (8.8-10.2); POTASSIUM 4.4 mmol/L (3.5-5.1)
--- NOTE | 2016-12-03 14:37 | PROGRESS NOTE ---
DATE: 12/03/2016 SUBJECTIVE: This patient is doing a little bit better. He is resting comfortably. Family members at the bedside, his brother. He is status post right BKA. 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 OBJECTIVE: Vital Signs: Temperature 98.5 degrees, pulse 91, respiratory rate 18, blood pressure 150/54, oxygen saturation 97% on room air. HEENT: Head normocephalic. No trauma. PERRLA. Decreased visual acuity. Neck: Supple. No JVD. No masses. Central trachea. Chest: Clear to auscultation. No wheezing. No rales. Abdomen: Soft, nontender, nondistended. No hepatosplenomegaly. Cardiovascular: RRR. No murmurs. Abdomen: Soft, nontender, nondistended. No hepatosplenomegaly. Extremities: He has a previous left leg amputation and now he has a new BKA on the right side. Neurological: The patient is sleepy but arousable. He has visual impairment and he is hard of hearing. He follows commands. He is answering my questions. LABORATORY: WBC 7.4, hemoglobin 8.3, hematocrit 27.5, platelets 257,000. Sodium 142, potassium 4.4, chloride 94, bicarbonate 25, BUN 23, creatinine 7.1, glucose 120, calcium 8.4. ASSESSMENT AND PLAN: 1. Right leg gangrene status post below-knee amputation, continue with local wound care, medical management, he is doing well. Probably he will go to rehab in 1 or 2 days, he is stable. 2. Depression. He has been started on Remeron to see if that will help. 3. End-stage renal disease. Continue with hemodialysis. 4. Severe peripheral vascular disease. Aware. 5. Anemia stable. 6. Type 2 diabetes. Blood sugar is under control. Continue with the same management for now. cc: Urbano Caal MD
--- NOTE | 2016-12-03 16:20 | PROGRESS NOTE ---
DATE: 12/03/2016 SUBJECTIVE: He is asleep. No complaints. OBJECTIVE: Vital Signs: Blood pressure 150/54, heart rate 86, respiration 18, afebrile. Intake 25 mL. Output 1.9 L. PHYSICAL EXAMINATION: No acute distress. Nose breathing. No oxygen.Neck: Supple. Neck vein distention is present. Heart: Regular with S4 gallop. Lungs: Have equal breath sounds. No crackles. Abdomen: Soft, nontender. Bowel sounds present. Extremities: Have no edema, clubbing, or cyanosis. LABORATORY DATA: Sodium 142, potassium 4.4, chloride 94, bicarbonate 25, BUN 23, creatinine 7.1. Hemoglobin 8.3. IMPRESSION: 1. End-stage kidney disease. He will have his next scheduled dialysis tomorrow. 2. Electrolytes/acid base/anemia, all stable. Hemoglobin is below target but stable. Continue erythropoietin. 3. Status post above-knee amputation. Awaiting transfer to rehab. cc: MD Urbano Randle MD
[2016-12-03] MEDS: REMERON PO SCH (22:20)
[2016-12-04] MEDS: DUONEB (A & A) INH SCH ×6 (03:33→23:11)
--- NOTE | 2016-12-04 06:38 | PROGRESS NOTE ---
DATE: 12/04/2016 SUBJECTIVE: No major issues. OBJECTIVE: Vital Signs: The patient is currently afebrile. His vital signs are stable. General: No acute distress. Resting comfortably. Cardiovascular: Regular rate and rhythm. Lungs: Grossly clear. Extremities: Amputation site with new dressing in place, healing well. ASSESSMENT AND PLAN: A 46-year-old male, status post right nxcnz-gqu-ykuy amputation. 1. Multiple medical comorbidities: Currently being managed by the hospitalist service. 2. Status post amputation: At this time, the patient is doing well. Once everything has been arranged for his disposition, it is okay for him to go. cc: MD Urbano Valentine MD
[2016-12-04] MEDS ORDERED: HEPARIN ONE (06:48)
[2016-12-04] MEDS ORDERED: NS 2,000 ML ONE (06:48)
[2016-12-04] MEDS ORDERED: NS 2,000 ML MISC PRN (09:49)
[2016-12-04] MEDS ORDERED: TIGHT: 0.2 ML/HR MISC PRN (09:49)
[2016-12-04] MEDS ORDERED: HEPARIN IV PRN (09:49)
[2016-12-04] MEDS: PRILOSEC PO SCH (14:42)
[2016-12-04] MEDS: NORVASC PO SCH (14:43)
[2016-12-04] MEDS: EPOGEN SUBQ SCH (14:43)
[2016-12-04] MEDS: PERCOCET-5 PO PRN ×2 (14:43→18:33)
--- NOTE | 2016-12-04 16:21 | PROGRESS NOTE ---
DATE: 12/04/2016 SUBJECTIVE: Patient resting in bed. He has completed dialysis today. He had no difficulties. OBJECTIVE: Vital Signs: Temperature 99.4 degrees, pulse 90, respiratory rate 20, blood pressure 147/73. Intake 25 mL with output 1.9 L. General: This is a middle-aged gentleman resting in bed. He is awake, alert, no acute distress. HEENT: Normocephalic, atraumatic. Oral mucosa moist. Dentition poor. Neck: Supple. Trachea midline. Positive JVD. Cardiovascular: Regular rate and rhythm. S4. Pulmonary: Equal excursion. Clear bilaterally on room air. Abdomen: Soft, nontender. Positive bowel sounds. : Not inspected. Minimal void. Extremities: Left BKA. Right AKA. There is a dressing to the right lower extremity. No drainage or bleeding noted. Integumentary: Skin is warm and dry. LAB DATA: I have no labs today. ASSESSMENT AND PLAN: 1. End-stage renal disease management. Today is his routine dialysis day. He underwent treatment without difficulty. We will plan to dialyze him on Friday if he remains in the hospital. 2. Electrolytes, acid-base balance, anemia. Check labs Friday morning. DISPOSITION: We understand that they are trying to place him in rehabilitation , although the patient has been reluctant to do this. Dictated by HAILEE Storey for Mukesh Dupree MD Data reviewed, discussed with Steven Palomo on 12/04/16. I agree with the above assessment and plan of care. cc: MD Urbano Randle MD MTDD
--- NOTE | 2016-12-04 16:57 | PROGRESS NOTE ---
DATE: 12/04/2016 SUBJECTIVE: No acute events overnight. This patient is about the same, compared with yesterday. He is status post right BKA. 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 I had a conversation with [facility] and, apparently, this patient does not qualify for this. They will follow up this patient at home with the [facility] and, once this patient is able to tolerate 3 hours of physical therapy, they probably will take this patient to [facility]. OBJECTIVE: Vital Signs: Temperature 99.4 degrees, pulse 77, respiratory rate 18, blood pressure 147/73, oxygen saturation 94% on room air. HEENT: Head normocephalic. No trauma. PERRLA. Decreased visual acuity. Neck: Supple. No JVD. No masses. Central trachea. Chest: Clear to auscultation. No wheezing. No rales. Abdomen: Soft, nontender, nondistended. No hepatosplenomegaly. Cardiovascular: RRR. No murmurs. Extremities: He has previous left leg amputation, and now he has a new BKA on the right side that looks clean with a dressing. Neurological: This patient is alert. He has visual impairment and he is hard of hearing. He follows commands and answers some of my questions. LABORATORY: Glucose 135. I checked the lab work from yesterday, and it looks fine. I will repeat it for tomorrow. ASSESSMENT AND PLAN: 1. Right leg gangrene, status post below-knee amputation. Continue with local wound care medical management. He is doing better. Probably he will go to either a rehabilitation center or home with home health today or tomorrow. 2. Depression. He has been started on Remeron to see if this can help. 3. End-stage renal disease. Continue with hemodialysis. 4. Severe peripheral vascular disease. Aware. 5. Anemia, stable. 6. Type 2 diabetes. The blood sugar under control. We will continue with the same management for now. cc: Urbano Caal MD
[2016-12-04] MEDS: REMERON PO SCH (20:36)
[2016-12-05] MEDS: DUONEB (A & A) INH SCH ×4 (03:29→15:03)
[2016-12-05 05:42] LABS: POTASSIUM 4.7 mmol/L (3.5-5.1)
--- NOTE | 2016-12-05 07:27 | PROGRESS NOTE ---
DATE: 12/05/2016 SUBJECTIVE: No major issues. Case management working on disposition. Nursing staff reports no major issues. OBJECTIVE: Vital Signs: The patient is currently afebrile. His vital signs have been stable. General: No acute distress. Resting comfortably. Cardiovascular: Regular rate and rhythm. Lungs: Grossly clear. Extremities: Amputation site healing well. Andrea in place. No signs of infection. ASSESSMENT AND PLAN: A 46-year-old male, status post right axscy-gin-kiaq amputation. 1. Multiple medical comorbidities currently being managed by the Hospitalist Service. 2. Status post amputation. At this time, the patient can be discharged. Will wait for Christian Counselor to make all the arrangements. cc: MD Urbano Valentine MD
[2016-12-05] MEDS: NORVASC PO SCH (08:20)
[2016-12-05] MEDS: PRILOSEC PO SCH (08:21)
[2016-12-05] MEDS ORDERED: LEVEMIR SUBQ SCH (09:00)
[2016-12-05] MEDS ORDERED: INSULIN PEN NEEDLES ONE (09:05)
[2016-12-05] MEDS: PERCOCET-5 PO PRN (10:58)
[2016-12-05 11:10] VITALS: BP 137/54
--- NOTE | 2016-12-05 12:50 | PROGRESS NOTE ---
DATE: 12/05/2016 SUBJECTIVE: He is sitting up today eating his breakfast on room air. Alert, oriented. He would like to go home stating that his mother and his sister can manage his care. OBJECTIVE: Vital Signs: Blood pressure 144/54, heart rate 103, respirations 20, afebrile. Intake 200 mL, output 2 L. General: On physical exam, no acute distress. Skin: Warm and dry. Eyes: Conjunctivae are pink. Neck: Neck veins are not visible. Heart: Regular with gallop. Lungs: Have equal breath sounds. No crackles. Abdomen: Soft, nontender. Bowel sounds present. Extremities: Have no edema, clubbing, or cyanosis. IMPRESSION: 1. End-stage kidney disease. His next scheduled dialysis is tomorrow. If discharged, he can resume treatment at his outpatient clinic. 2. Hypertension in target. 3. Status post above-knee amputation. Despite his protestations, I would support his discharge to a nursing home facility for rehabilitation. cc: MD Urbano Randle MD
--- NOTE | 2016-12-06 10:56 | DISCHARGE SUMMARY ---
ADMISSION DATE: 11/26/2016 DISCHARGE DATE: 12/05/2016 CONSULTATIONS: 1. Dr. Mukesh Dupree with Nephrology. 2. Dr. Solitario Tang with General Surgery. PERTINENT PROCEDURES: 1. Chest x-ray shows an enlargement of the heart shadow since prior. Could be cardiomegaly or pericardial effusion. 2. Above the knee amputation of the right lower extremity performed by Dr. Solitario Tang. DISCHARGE DIAGNOSES: 1. Right leg gangrene status post zvkfg-nmo-ggjp amputation. The patient could not go to rehab secondary to being out of rehab days, and he was turned down at [facility] because he could not withstand the 3 hours of therapy time. He is being discharged home with his mother with home health with [facility]. Continue with local wound care. Follow up with miguelina Green. 2. Depression. The patient is started on Remeron, stable. 3. End-stage renal disease. Continue with regular scheduled hemodialysis. 4. Severe peripheral vascular disease. Aware. 5. Anemia stable. 6. Type 2 diabetes uncontrolled. Continue with Levemir and Humalog. HOSPITAL COURSE: Mr. Vasquez is a 46-year-old male who has end-stage renal disease. He is not typically followed by Dr. Dupree. His end-stage renal disease is secondary to his diabetes, severe peripheral vascular disease, anemia of chronic disease, hypertension, hyperlipidemia, CAD, left rsigl-zys-jjwq amputation, bilateral AV fistulas- left is occluded and the amputation of the right 4th digit in relation to her gangrenous right pointer finger. HOSPITAL COURSE BRIEFLY: Mr. Vasquez is a 46-year-old male that we are consulted on for an above the knee amputation of the right lower extremity for a gangrenous right lower extremity performed by Dr. Tang on 11/26/2016. He carries a history of end-stage renal disease on hemodialysis, diabetes mellitus, peripheral vascular disease, history of CVA, history of a gangrenous right pointer finger that has been amputated, as well as a left BKA. We were consulted for medical management. Dr. Dupree was consulted for management of his hemodialysis. He has done well status post his amputation. The family was concerned because he was sleeping a lot. He had a decrease in his appetite. They felt he has some depression. He was started on Remeron. Inspector Hairspring was consulted for rehab placement. The patient is out of rehab days. We did try [facility] rehab; however, he is not able to withstand the 3 hours of aggressive physical therapy so he was denied. We spoke with the mother. He will be going home with the mother with home health. He has [facility]. VITAL SIGNS AT TIME OF DISCHARGE: Temperature was 98.1 degrees, heart rate 96, respirations 20, blood pressure is 137/54. O2 is 98% on room air. DISCHARGE DIET: Diabetic. DISCHARGE MEDICATIONS PER DR. VELA: 1. Norvasc 5 mg p.o. daily. 2. Heraclio packet one each p.o. b.i.d. 3. Lipitor 10 mg p.o. at bedtime. 4. PhosLo 1334 mg p.o. t.i.d. 5. Epogen 29038 units subcutaneous Friday, Friday and Friday. 6. Folic acid 1 mg p.o. daily. 7. Goree 7.5/325, 1-2 p.o. q.6 hours p.r.n. 8. Levemir 10 units subcutaneously b.i.d. 9. Humalog Quick plan 5 units subcutaneously as directed. 10. Remeron 15 mg p.o. at bedtime. FOLLOWUP: Mr. Vasquez is being discharged home with his mother with his [facility]. He will follow up with Dr. Tang in 1 week. Continue with his regular scheduled dialysis as well as his primary care physician. He can return to the ED for any worsening of symptoms. DISCHARGE TIME: 30 minutes. Dictated by HAILEE More for Urbano Caal MD cc: Urbano Caal MD
--- NOTE | 2016-12-06 17:43 | DISCHARGE SUMMARY ---
ADMISSION DATE: 11/26/2016 DISCHARGE DATE: 12/05/2016 ADMITTING DIAGNOSES: 1. 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 2. End-stage renal disease. DISCHARGE DISCHARGES: 1. Status post right xvwsr-pom-ansf amputation. 2. End-stage renal disease. CONSULTATIONS: Dr. Pro with the Hospitalist Service and Dr. Dupree with Nephrology. PROCEDURES: Patient on 11/26/2016 underwent right nasan-cev-gcas amputation. BRIEF HISTORY AND COURSE OF STAY: The patient is a 46-year-old, male who I had seen for diabetic foot ulcer on his right leg. He had a previous amputation of his left leg. He came into the office on 11/26/2016 and had significant worsening of his wound. He did have what appeared to be maggots in the wound. We admitted him that day from the office. We consulted Dr. Pedro Pro with the Hospitalist Service and Dr. Dupree. He was started on the process of resuscitation antibiotics. He underwent the previously described procedure on 11/26/2016 which he tolerated well. His postoperative course was not particularly complicated. His wound healed up well. He did stay several days to get additional antibiotics and to make sure his overall clinical picture had improved. On 12/05/2016, it was felt that the patient was safe to be discharged home with arrangements made by [employer] Department Supervisor. His wound was intact. He had [facility] arranged. DISCHARGE CONDITION: Stable. DISPOSITION: Home. FOLLOWUP: Patient told to follow up with me in 1-2 weeks to assess his amputation site. cc: MD Urbano Valentine MD
--- NOTE | 2016-12-10 03:37 | DISCHARGE SUMMARY ---
ADMISSION DATE: 11/26/2016 DISCHARGE DATE: 12/05/2016 ADDENDUM REPORT Patient was seen and examined by me [id number]. He is a 46-year-old, male with a past medical history of depression, end-stage renal disease, severe peripheral vascular disease, type 2 diabetes which is uncontrolled and anemia. 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 We tried to send this patient to a rehabilitation center but at this moment he did not qualify so we talked to the family members and he will be discharged home with physical therapy at home. Once he is a little bit more stable he probably can go to [facility]. His vital signs were stable. He will follow up with his primary care physician and he needs to continue dialysis as scheduled. We talked to the family and they will take this patient for dialysis. He also needs to follow up with Surgery Department in 1 week on his amputation. cc: Urbano Caal MD
== END 2016-12-05 17:13 | disposition home health service (06) ==
LOC: DIRADM 08:35 → 4N 09:12
PROVIDERS: ADMIT Internal Medicine; ATTEND Surgery